=== PATIENT | female | born 1960 | race African-American/Black ===

== ENCOUNTER 2018-07-01 18:56 | Emergency (ER) | payer OTHER, MEDICAID ==
[~2018-07-01] VITALS: Ht 167.6 cm; Wt 74.8 kg
[~2018-07-01 18:56] MED LIST: ALBU0.5N2; BUDE160A3; BUPR150T42; CALCTAB25 PO; DOCU-94 PO; FERR325T47; FOLI1TAB51 PO; GABA300C10; HYDR-2533; HYDR200T36; HYDRX10T; LISI10TA6; MELO1TAB56 PO; METH2.5T3 PO; METH750T3; OMEP20TA PO; PRED10PA; SUMA50TA2; TRAZ100T2; [UNRECOGNIZED DRUG - OTHER]
[2018-07-01 19:32] VITALS: BP 160/105
== END 2018-07-01 22:20 | disposition left against medical advice (07) ==
LOC: EDBD 18:56 → ER 18:59
DX: R10.33 Periumbilical pain (principal); Z53.21 Procedure and treatment not carried out due to patient leaving prior to being seen by health care provider

== ENCOUNTER 2020-05-04 16:26 | Emergency (ER) | payer OTHER, MEDICAID ==
[~2020-05-04] VITALS: Ht 157.5 cm; Wt 63.5 kg
[~2020-05-04 16:26] MED LIST changes: +LISI-648; -LISI10TA6; +METH2.5T PO; -METH2.5T3 PO; -TRAZ100T2; +TRAZ100T3
[2020-05-04 18:04] LABS: Basophils # (auto) 0.1 10 ^3/uL (0-0.2); Basophils % (auto) 1.4 % (0.0-2.0); Eosinophils # (auto) 0 10 ^3/uL (0-0.8); Eosinophils % (auto) 0.8 % (0.0-7.0); Hematocrit 41.8 % (36.0-46.0); Hemoglobin 14.1 g/dL (12.2-16.2); Lymphocytes # (auto) 1.7 10 ^3/uL (0.4-5.4); Lymphocytes % (auto) 36.1 % (10.0-50.0); Mean Corpuscular Hemoglobin 30.1 pg (28.0-32.0); Mean Corpuscular Hgb Conc. 33.8 g/dL (32.0-36.0); Mean Corpuscular Volume 89.1 fL (80.0-100.0); Monocytes # (auto) 0.5 10 ^3/uL (0-1.3); Monocytes % (auto) 9.8 % (0.0-12.0); Neutrophils # (auto) 2.5 10 ^3/uL (1.6-8.6); Neutrophils % (auto) 51.9 % (37.0-80.0); Nucleated Red Blood Cells % 0.1 %; Platelet Count (auto) 261 10^3/uL (140-450); Red Blood Cells 4.69 10^6/uL (4.0-5.20); Red Cell Distribution Width 13.8 % (11.8-14.3); White Blood Cell 4.8 10^3/uL (4.4-10.8)
[2020-05-04 19:09] LABS: Alanine Aminotransferase 28 U/L (13-56); Alkaline Phosphatase 67 U/L (45-117); Anion Gap 9 (5-15); Aspartate Aminotransferase 24 U/L (15-37); BUN/Creatinine Ratio 13.1; Blood Urea Nitrogen 14 mg/dL (7-18); Carbon Dioxide 24 mmol/L (21-32); Chloride 103 mmol/L (98-107); GFR African American 68 mL/min; GFR Non-African American 56 mL/min; Glucose 105 mg/dL (74-106); Potassium 3.6 mmol/L (3.5-5.1); Sodium 136 mmol/L (136-145)
[2020-05-04 19:10] LABS: Albumin 3.8 g/dL (3.4-5.0); Bilirubin, Total 0.5 mg/dL (0.2-1.0); Calcium 9.2 mg/dL (8.5-10.1); Lipase 117 U/L (73-393); Total Protein 8.1 g/dL (6.4-8.2)
[2020-05-04 19:50] VITALS: BP 156/89
[2020-05-04] MEDS ORDERED: traMADol HCL 50 MG TAB PO ONE (21:00)
[2020-05-04 21:06] LABS: Urine Bacteria NONE SEEN /hpf (None Seen); Urine Blood Negative /uL (Negative); Urine Hyaline Cast FEW /lpf (0 - 2); Urine Mucus FEW (None Seen); Urine Specific Gravity 1.032 (1.001-1.035); Urine WBC 3 /hpf (0 - 5)
[2020-05-04] MEDS ORDERED: ONDANSETRON ODT 4 MG TAB PO ONE (21:15)
== END 2020-05-04 21:37 | disposition home or self-care (01) ==
LOC: ER 16:26 → EDBD 16:26 → ER 21:37
DX: R10.84 Generalized abdominal pain (principal); J44.9 Chronic obstructive pulmonary disease, unspecified; K21.9 Gastro-esophageal reflux disease without esophagitis; I10 Essential (primary) hypertension; F17.210 Nicotine dependence, cigarettes, uncomplicated; Z90.49 Acquired absence of other specified parts of digestive tract; Z90.710 Acquired absence of both cervix and uterus; Z88.0 Allergy status to penicillin
CPT/HCPCS: 36415; 71045; 74176; 80053; 81001; 83690; 85025; 93005; 99285; Q0162

== ENCOUNTER 2023-11-16 04:04 | Emergency (ER) | payer OTHER, MEDICAID ==
[~2023-11-16] VITALS: Ht 157.5 cm; Wt 48.3 kg
[~2023-11-16 04:04] MED LIST changes: +GABA-1250; -GABA300C10; -LISI-648; +LISI10TA34; +MELO15TA29 PO; -MELO1TAB56 PO; +METH-1182; -METH750T3; +TRAZ-228; -TRAZ100T3
[2023-11-16 05:00] VITALS: BP 145/68; PULSE 80; RESP 18; TEMP 97.9; O2SAT 98
[2023-11-16] MEDS ORDERED: CLIN1CAP70 PO (05:22)
[2023-11-16] MEDS ORDERED: ACET500T58 PO (05:22)
[2023-11-16] MEDS: cefTRIAXone SOD 1,000 MG VL IM ONE (05:39)
[2023-11-16] MEDS: BENZOCAINE (DENTAL) 20 % SPRAY 60ML MT ONE (05:39)
== END 2023-11-16 05:43 | disposition home or self-care (01) ==
LOC: ER 04:04
DX: K04.7 Periapical abscess without sinus (principal); J44.9 Chronic obstructive pulmonary disease, unspecified; I10 Essential (primary) hypertension; K21.9 Gastro-esophageal reflux disease without esophagitis; M19.90 Unspecified osteoarthritis, unspecified site; Z79.51 Long term (current) use of inhaled steroids; Z79.899 Other long term (current) drug therapy; Z88.0 Allergy status to penicillin; Z88.5 Allergy status to narcotic agent; Z88.6 Allergy status to analgesic agent; Z90.49 Acquired absence of other specified parts of digestive tract; Z90.710 Acquired absence of both cervix and uterus
CPT/HCPCS: 96372; 99283; J0696

== ENCOUNTER 2024-04-08 16:55 | Emergency (ER) | payer OTHER, MEDICAID ==
[~2024-04-08] VITALS: Ht 167.6 cm; Wt 63.7 kg
[~2024-04-08 16:55] MED LIST changes: +ACET500T58 PO; +CLIN1CAP70 PO
--- NOTE | 2024-04-08 17:14 | ED.PDOC ---
GI ASSESSMENT HPI Comments HPI: Poor Historian. HPI: 63 year old female TAMMY presents to the ED with chief complaint of abdominal pain. Patient reports that she has been experiencing recent periumbilical abdominal pain for the past week with associated nausea and vomiting for the past 2 days. Patient relays that she has had chronic abdominal pain and nausea/vomiting for the past 2 years and has seen a GI specialist regarding this concern, being told she had some kind of "blockage," but she continues to experience these symptoms intermittently. Patient states she is currently on Linzess, but could not remember why she is taking it. Patient denies any diarrhea, fever, chills, dysuria, chest pain, or SOB. Initial Vital Signs: Temp : 99.2F BP: 136/72 HR: 94 RR: 16 SpO2: 96% Past Medical History: HTN, HLD, COPD, Hypothyroidism, Arthritis Past Surgical History: , Hysterectomy, Cholecystectomy Social History: Occasional ETOH. Denies smoking or drug use. Medications: Linzess, Lisinopril, Gabapentin Allergies: Codeine, Ibuprofen, Penicillins REVIEW OF SYSTEMS: CONSTITUTIONAL: Denies acute: fever, diaphoresis, chills, generalized weakness. HEAD: Denies acute: headache, photophobia Eyes: Denies acute: Double vision, vision loss, eye pain, eye discharge. EARS: Denies acute: tinnitus, hearing loss, ear discharge, ear pain, THROAT: Denies acute: sore throat, swelling, difficulty swallowing , pain with swallowing, change in voice. NECK: Denies acute: neck pain, neck swelling, stiff neck. HEART: Denies acute : chest pain, palpitations, LUNGS: Denies acute: SOB, wheezing, cough, hemoptysis ABDOMEN: Denies acute: diarrhea, melena , hematemesis, hematochezia SKIN: Denies acute: rash, redness, lesions, itchiness. EXTREMITIES: Denies acute: calf pain, numbness, tingling, weakness, denies pain in extremity. Denies acute: Low back pain. Neuro: Denies acute: focal neurological deficit, motor or sensory focal neurological deficit, tremors, seizure like activity, confusion, dizziness, change in mental status, loss of bowel or bladder function, cauda equina like symptoms. : Denies acute: dysuria, hematuria, flank pain, increase in urinary frequency. PSYCH: Denies acute: hallucination, suicidal ideation, homicidal ideation. FEMALE: Denies acute: abnormal vaginal bleeding, foul odor, unusual discharge. PHYSICAL EXAM: General: no acute distress, awake and alert. Head: normocephalic, atraumatic. Neck: supple, trachea is midline, no swelling. Throat: Normal phonation. Eyes:, no erythema, no purulent discharge, no proptosis, no icterus. Heart: regular rate, regular rhythm, no significant murmur appreciated. Lungs: no apparent respiratory distress, Able to speak in full sentences. No wheezing, no rhonchi, no crackles. No stridors Clear to auscultation bilaterally. Abdomen: Periumbilical tender to palpation, non distended, soft, no guarding, no rebound, + hyperactive bowel sounds. Neuro: Awake, Alert, oriented to name, self, situation, follows commands GCS=15. Speech is normal. Skin: no petechia, no purpura, no cyanosis, non-pale, not jaundice. Lower extremities: --no - Pitting edema no deformity, no focal swelling, no calf TTP. Makes eye contact. moves all four extremities. Face: no apparent facial droop. Ambulating in the ED independently. ED COURSE: Time Seen by MD: 17:03 Primary Care Provider: KRISTINA SINCLAIR Reviewed Notes: Medications, Allergies Allergies: Coded Allergies: Codeine (Verified Allergy, Mild, 08/31/10) Ibuprofen (Verified Allergy, Mild, 08/31/10) Penicillins (Verified Allergy, Mild, 08/31/10) Home Meds Active Scripts Acetaminophen (Acetaminophen) 500 Mg Tab, 500 MG PO Q4HPRN, #30 TAB 0 Refills Prov:JAMIL MCKEE 11/16/23 Clindamycin Hcl (Clindamycin Hcl) 300 Mg Cap, 1 CAP PO QID for 7 Days, #28 CAP 0 Refills Prov:JAMIL MCKEE 11/16/23 Reported Medications Docusate Sodium (Colace) 100 Mg Cap, 100 MG PO, CAP 04/09/15 Calcium Carbonate-Vitamin D (Calcium 600-D) 1 Tab Tab, 1 TAB PO BID, #60 TAB 11 Refills 04/09/15 Folic Acid (FOLIC ACID) 1 Mg Tb, 1 TAB PO DAILY, #90 TAB 1 Refill 04/09/15 Meloxicam (Meloxicam) 15 Mg Tab, 15 MG PO, TAB 04/09/15 Methotrexate (Methotrexate) 2.5 Mg Tab, 2.5 MG PO, TAB 04/09/15 Omeprazole (Gnp Omeprazole) 20 Mg Tab, 20 MG PO, TAB 04/09/15 Albuterol Sulfate (Albuterol Sulfate) 0.5 % Neb 03/28/11 Budesonide-Formoterol Fumarate (Symbicort) 1 Aer Aer 03/28/11 [Triamcinoldine] No Conflict Check 03/28/11 Hydroxychloroquine Sulfate (Hydroxychloroquine Sulfat) 200 Mg Tab, DAILY 03/28/11 Sumatriptan Succinate (Imitrex) 50 Mg Tab 03/28/11 Hydroxyzine Hcl (Vistaril) 10 Mg Tb 03/28/11 Ferrous Sulfate (Fe Tabs) 325 Mg Tab, DAILY 03/28/11 Lisinopril (Lisinopril) 10 Mg Tab 03/28/11 Trazodone Hcl (Trazodone Hcl) 100 Mg Tab, DAILY 03/28/11 Bupropion Hcl (Budeprion Sr) 150 Mg Tab, DAILY 03/28/11 Methocarbamol (Methocarbamol) 750 Mg Tab 03/28/11 Gabapentin (Gabapentin) 300 Mg Cap, TID 03/28/11 Hydrocodone-Acetaminophen (Hydrocodone Bitartrate/Ap) 1 Tab Tab 03/28/11 Prednisone (Sterapred Ds) 10 Mg Jose Guadalupe 03/28/11 Information Source: Patient, Emergency Med Personnel Mode of Arrival: EMS Was a procedure done? Was a procedure done?: No GI differential Dx Differential Diagnosis: Other (DDX include Diverticulitis, colitis, gastroenteritis, acute abdomen, SBO, enteritis, constipation, volvulus, appendicitis, Gallbladder disease, choledocolithiasis, ascending cholangitis, pancreatitis, intraAbdominal mass/neoplasm, hepatitis, UTI, pylonephritis, kidney stone, aneurysm, dissection, Inflammatory bowel disease, gastroparesis, ischemic bowel, ovarian torsion, ovarian cyst/mass, tubo-ovarian abscess, , PID, STD.) X-Ray, Labs, Meds, VS Vital Signs Date Time Temp Pulse Resp B/P (MAP) Pulse Ox O2 Delivery O2 Flow Rate FiO2 04/08/24 20:47 98.1 68 18 118/66 (83) 96 98.1 04/08/24 20:22 Room Air* 0 21 04/08/24 18:01 Room Air* 0 21 04/08/24 17:03 73 04/08/24 17:03 99.2 94 16 136/72 (93) 96 Lab Test 04/08/24 21:00 04/08/24 20:35 04/08/24 18:09 Range/Units Lactic Acid Level 1.7 2.4 *H 0.4-2.0 mmol/L Urine Color Light-yellow Yellow Urine Clarity Clear Clear Urine pH 5.5 5.0-9.0 Urine Specific [place] 1.012 1.001-1.035 Urine Protein Negative Negative Urine Ketones Negative Negative Urine Blood Negative Negative /uL Urine Nitrite Negative Negative Urine Bilirubin Negative Negative Urine Urobilinogen Normal Negative mg/dL Urine Leukocyte Esterase Negative Negative /uL Urine RBC 1 0 - 4 /hpf Urine Microscopic WBC 1 0-5 /HPF Urine Squamous Epithelial Cells Few <5 /hpf Urine Bacteria None seen None Seen /hpf Urine Glucose Normal Normal mg/dL White Blood Count 6.4 4.4-10.8 10^3/uL Red Blood Count 4.14 4.0-5.20 10^6/uL Hemoglobin 12.3 12.2-16.2 g/dL Hematocrit 37.9 36.0-46.0 % Mean Corpuscular Volume 91.4 80.0-100.0 fL Mean Corpuscular Hemoglobin 29.8 28.0-32.0 pg Mean Corpuscular Hemoglobin Concent 32.6 32.0-36.0 g/dL Red Cell Distribution Width 13.2 11.8-14.3 % Platelet Count 228 140-450 10^3/uL Mean Platelet Volume 7.2 6.9-10.8 fL Neutrophils (%) (Auto) 65.5 37.0-80.0 % Lymphocytes (%) (Auto) 22.2 10.0-50.0 % Monocytes (%) (Auto) 8.8 0.0-12.0 % Eosinophils (%) (Auto) 2.8 0.0-7.0 % Basophils (%) (Auto) 0.7 0.0-2.0 % Neutrophils # (Auto) 4.2 1.6-8.6 10 ^3/uL Lymphocytes # (Auto) 1.4 0.4-5.4 10 ^3/uL Monocytes # (Auto) 0.6 0-1.3 10 ^3/uL Eosinophils # (Auto) 0.2 0-0.8 10 ^3/uL Basophils # (Auto) 0 0-0.2 10 ^3/uL Nucleated Red Blood Cells 0.1 % Sodium Level 137 136-145 mmol/L Potassium Level 3.2 L 3.5-5.1 mmol/L Chloride Level 102 98-107 mmol/L Carbon Dioxide Level 26 20-31 mmol/L Anion Gap 9 5-15 Blood Urea Nitrogen 13 9-23 mg/dL Creatinine 0.95 0.550-1.02 mg/dL Glomerular Filtration Rate Calc 68 >90 mL/min BUN/Creatinine Ratio 13.7 10.0-20.0 Serum Glucose 88 74-106 mg/dL Calcium Level 8.8 8.7-10.4 mg/dL Total Bilirubin 0.5 0.2-1.0 mg/dL Aspartate Amino Transferase (AST) 26 13-40 U/L Alanine Aminotransferase (ALT) 28 7-40 U/L Alkaline Phosphatase 76 46-116 U/L Troponin I High Sensitivity < 3 L </=34 ng/L Total Protein 6.1 5.7-8.2 g/dL Albumin 3.7 3.2-4.8 g/dL Lipase 34 12-53 U/L Current Medications Medications (Trade) Dose Ordered Sig/[place] Route Start Time Stop Time Status Last Admin Sodium Chloride 1,000 ml @ 1,000 mls/hr Q1H ONCE IV 04/08/24 17:15 04/08/24 18:14 DC 04/08/24 17:15 Ondansetron HCl (Zofran) 8 mg ONCE ONCE IV 04/08/24 17:15 04/08/24 17:16 DC 04/08/24 17:15 Sodium Chloride 1,000 ml @ 1,000 mls/hr Q1H ONCE IV 04/08/24 19:15 04/08/24 20:14 DC 04/08/24 20:[address] [address] Ph: [phone] DIAGNOSTIC IMAGING Diagnostic Imaging Report : [id number] Signed PATIENT: SIERRA NASH ACCT: [id number] UNIT: [id number] : 1960 LOC: ER ROOM / BED: / AGE / SEX: 63 / F ADM STATUS: REG ER SERVICE 1703 ORDERING PHYSICIAN: DANIELLA LUCIO DO PROCEDURE(s): ABPL - CT AB PEL WO CON-NO ORAL OR IV REASON: abd pain, n/v ORDER NUMBER(s): [id number], ACCESSION NUMBER(s): [id number] Exam: CT CT AB PEL WO CON-NO ORAL OR IV History: abd pain, n/v Comparison Study: None available at time of dictation. TECHNIQUE: Multidetector CT of the abdomen was performed from lung bases to pubic symphysis. Imaging was performed without IV contrast. Axial, coronal and sagittal multiplanar reformats were obtained from the axial data set by the technologist. Radiation Dose Information: CT Dose: CTDI volume is 5.08 mGy. Dose-length product is 221.66 mGy*cm FINDINGS: Evaluation of solid organs is limited due to lack of intravenous contrast use. Findings: Lung Bases: No acute or significant lung base finding. Normal heart size. No pleural or pericardial effusion. Liver: The liver is normal in size. No focal lesions. Gallbladder and Biliary Tree: Gallbladder has been surgically removed. Spleen: Unremarkable Pancreas: The pancreas is grossly normal in appearance. Adrenal Glands: Unremarkable Kidneys: Kidneys are grossly normal without calculi or hydronephrosis. Bladder: Grossly unremarkable for degree of distention. Bowel: The stomach is distended with fluid. Small bowel is minimally distended and fluid-filled throughout. Findings may represent gastroenteritis. There are no CT findings to suggest obstruction.. The appendix is not visualized; however, no secondary findings of acute appendicitis identified. Ascites: Absent Lymphadenopathy: No mesenteric, retroperitoneal or periportal lymphadenopathy. Abdominal Wall and Mesentery: Unremarkable. Vasculature: The visualized abdominal aorta is normal in size and caliber. Evaluation of abdominal and pelvic vessels is limited due to lack of intravenous contrast. Pelvic Organs: Unremarkable Musculoskeletal: No aggressive focal bony lesions, acute fractures or dislocation. Soft tissues: Unremarkable IMPRESSION: 1. No CT findings to suggest bowel obstruction. 2. CT findings are most consistent with gastroenteritis. 3. Gallbladder has been surgically removed. . Radiation optimization: All CT scans at this facility use at least one of these dose optimization techniques: automated exposure control mA and/or kV adjustment per patient size (includes targeted exams where dose is matched to clinical indication) or iterative reconstruction. ATED BY: NENO LEMUS Jr., DO DICTATED DATE/TIME: 04/08/241750 SIGNED BY: NENO LEMUS Jr., SIGNED DATE/TIME: 04/08/241750 CC: Time of 1ST Reevaluation: 18:03 Reevaluation 1ST: Unchanged Time of 2ND Reevaluation: 22:03 Reevaluation 2ND: Improved Patient Education/Counseling: Diagnosis, Treatment Family Education/Counseling: No Family Present Comments Patient presented with the above HPI.-abdominal pain-----workup was initiated. patient was found with the above mentioned diagnosis. the following medications were ordered: please refer to order lists of meds and tests obtained by myself Dr. Lucio. Patient ED course and VS have been stabilized. Patient has been reassessed in the ED and remained in a stable condition. Pertinent incidental findings were discussed with the patient and/or family. Patient/family voices understanding and is agreeable with plan. Patient has been observed in the ED adequate length of time to insure improvement/stability. Escalation of care considered: Consideration of escalation to observation or admission Patient was DISCHARGED home in a stable condition. All the reports of any imaging studies that were ordered by myself were reviewed by myself. Departure 1 Departure Time of Disposition: 22:03 Impression: Primary Impression: Abdominal pain Additional Impressions: Nausea and vomiting Gastroenteritis Hypokalemia Disposition: 01 HOME / SELF CARE / HOMELESS Condition: Stable Additional Instructions: Additional discharge instructions: You MUST follow-up with your primary care/family doctor in 1 to 2 days. If you are unable to see your primary care/family doctor, please return to our emergency room for re-assessment and re-evaluation in 1 to 2 days. Return to the emergency room here in our facility or to the nearest ER [facility] if your symptoms change or worsen. CONSULTATIONS: you MUST Follow-up for consultation as soon as possible with: -general surgery and GI doctor in 1-2 days. Please call for appointment. You MUST call the consultants office yourself to make an appointment. You may need to arrange that through your insurance and/or your primary/family doctor. If you are unable to see the [facility] consultant in 1 to 2 days, you must return to our emergency room (or any other ER of your choice) for re-assessment and re- evaluation. Adequate fluid hydration. Below is a copy of your radiological report for follow up: [place] [address] Ph: [phone] DIAGNOSTIC IMAGING Diagnostic Imaging Report : [id number] Signed PATIENT: SIERRA NASH ACCT: [id number] UNIT: [id number] : 1960 LOC: ER ROOM / BED: / AGE / SEX: 63 / F ADM STATUS: REG ER SERVICE 1703 ORDERING PHYSICIAN: DANIELLA LUCIO DO PROCEDURE(s): ABPL - CT AB PEL WO CON-NO ORAL OR IV REASON: abd pain, n/v ORDER NUMBER(s): [id number], ACCESSION NUMBER(s): [id number] Exam: CT CT AB PEL WO CON-NO ORAL OR IV History: abd pain, n/v Comparison Study: None available at time of dictation. TECHNIQUE: Multidetector CT of the abdomen was performed from lung bases to pubic symphysis. Imaging was performed without IV contrast. Axial, coronal and sagittal multiplanar reformats were obtained from the axial data set by the technologist. Radiation Dose Information: CT Dose: CTDI volume is 5.08 mGy. Dose-length product is 221.66 mGy*cm FINDINGS: Evaluation of solid organs is limited due to lack of intravenous contrast use. Findings: Lung Bases: No acute or significant lung base finding. Normal heart size. No pleural or pericardial effusion. Liver: The liver is normal in size. No focal lesions. Gallbladder and Biliary Tree: Gallbladder has been surgically removed. Spleen: Unremarkable Pancreas: The pancreas is grossly normal in appearance. Adrenal Glands: Unremarkable Kidneys: Kidneys are grossly normal without calculi or hydronephrosis. Bladder: Grossly unremarkable for degree of distention. Bowel: The stomach is distended with fluid. Small bowel is minimally distended and fluid-filled throughout. Findings may represent gastroenteritis. There are no CT findings to suggest obstruction.. The appendix is not visualized; however, no secondary findings of acute appendicitis identified. Ascites: Absent Lymphadenopathy: No mesenteric, retroperitoneal or periportal lymphadenopathy. Abdominal Wall and Mesentery: Unremarkable. Vasculature: The visualized abdominal aorta is normal in size and caliber. Evaluation of abdominal and pelvic vessels is limited due to lack of intravenous contrast. Pelvic Organs: Unremarkable Musculoskeletal: No aggressive focal bony lesions, acute fractures or dislocation. Soft tissues: Unremarkable IMPRESSION: 1. No CT findings to suggest bowel obstruction. 2. CT findings are most consistent with gastroenteritis. 3. Gallbladder has been surgically removed. . Radiation optimization: All CT scans at this facility use at least one of these dose optimization techniques: automated exposure control mA and/or kV adjustment per patient size (includes targeted exams where dose is matched to clinical indication) or iterative reconstruction. ATED BY: NENO LEMUS Jr., DO DICTATED DATE/TIME: 04/08/241750 SIGNED BY: NENO LEMUS Jr., DO SIGNED DATE/TIME: 04/08/241750 CC: Discharged With: Self Critical Care Note Critical Care Time?: No I personally scribed for DANIELLA LUCIO DO ([email or web address]) on 04/08/24 at 17:14. Electronically submitted by Shadi Hogue ([email or web address]). I personally scribed for DANIELLA LUCIO DO ([email or web address]) on 04/08/24 at 18:06. Electronically submitted by Shadi Hogue ([email or web address]). I personally scribed for DANIELLA LUCIO DO ([email or web address]) on 04/08/24 at 18:22. Electronically submitted by Shadi Hogue ([email or web address]). DANIELLA LUCIO DO Apr 08, 2024 17:14
[2024-04-08] MEDS: ONDANSETRON HCL 4 MG/2 ML VIAL IV ONE (17:15)
[2024-04-08] MEDS: SODIUM CHLORIDE 0.9% 1,000 ML IV ONE ×2 (17:15→20:07)
--- NOTE | 2024-04-08 17:54 | DVH ---
Exam: CT CT AB PEL WO CON-NO ORAL OR IV History: abd pain, n/v Comparison Study: None available at time of dictation. TECHNIQUE: Multidetector CT of the abdomen was performed from lung bases to pubic symphysis. Imaging was performed without IV contrast. Axial, coronal and sagittal multiplanar reformats were obtained fr om the axial data set by the technologist. Radiation Dose Information: CT Dose: CTDI volume is 5.08 mGy. Dose-length product is 221.66 mGy*cm FINDINGS: Evaluation of solid organs is limited due to lack of intravenous contrast use. Findings: Lung Bases: No acute or significant lung base finding. Normal heart size. No pleural or pericardial effusion. Liver: The liver is normal in size. No focal lesions. Gallbladder and Biliary Tree: Gallbladder has been surgically removed. Spleen: Unremarkable Pancreas: The pancreas is grossly normal in appearance. Adrenal Glands: Unremarkable Kidneys: Kidneys are grossly normal without calculi or hydronephrosis. Bladder: Grossly unremarkable for degree of distention. Bowel: The stomach is distended with fluid. Small bowel is minimally distended and fluid-filled throu ghout. Findings may represent gastroenteritis. There are no CT findings to suggest obstruction.. The appendix is not visualized; however, no secondary findings of acute appendicitis identified. Ascites: Absent Lymphadenopathy: No mesenteric, retroperitoneal or periportal lymphadenopathy. Abdominal Wall and Mesentery: Unremarkable. Vasculature: The visualized abdominal aorta is normal in size and caliber. Evaluation of abdominal a nd pelvic vessels is limited due to lack of intravenous contrast. Pelvic Organs: Unremarkable Musculoskeletal: No aggressive focal bony lesions, acute fractures or dislocation. Soft tissues: Unremarkable IMPRESSION: 1. No CT findings to suggest bowel obstruction. 2. CT findings are most consistent with gastroenteritis. 3. Gallbladder has been surgically removed. . Radiation optimization: All CT scans at this facility use at least one of these dose optimization bulmaro hniques: automated exposure control mA and/or kV adjustment per patient size (includes targeted exam s where dose is matched to clinical indication) or iterative reconstruction.
[2024-04-08 18:31] LABS: Basophils # (auto) 0 10 ^3/uL (0-0.2); Basophils % (auto) 0.7 % (0.0-2.0); Eosinophils # (auto) 0.2 10 ^3/uL (0-0.8); Eosinophils % (auto) 2.8 % (0.0-7.0); Hematocrit 37.9 % (36.0-46.0); Hemoglobin 12.3 g/dL (12.2-16.2); Lymphocytes # (auto) 1.4 10 ^3/uL (0.4-5.4); Lymphocytes % (auto) 22.2 % (10.0-50.0); Mean Corpuscular Hemoglobin 29.8 pg (28.0-32.0); Mean Corpuscular Hgb Conc. 32.6 g/dL (32.0-36.0); Mean Corpuscular Volume 91.4 fL (80.0-100.0); Monocytes # (auto) 0.6 10 ^3/uL (0-1.3); Monocytes % (auto) 8.8 % (0.0-12.0); Neutrophils # (auto) 4.2 10 ^3/uL (1.6-8.6); Neutrophils % (auto) 65.5 % (37.0-80.0); Nucleated Red Blood Cells % 0.1 %; Platelet Count (auto) 228 10^3/uL (140-450); Red Blood Cells 4.14 10^6/uL (4.0-5.20); Red Cell Distribution Width 13.2 % (11.8-14.3); White Blood Cell 6.4 10^3/uL (4.4-10.8)
[2024-04-08 18:50] LABS: Alanine Aminotransferase 28 U/L (7-40); Albumin 3.7 g/dL (3.2-4.8); Alkaline Phosphatase 76 U/L (46-116); Anion Gap 9 (5-15); Aspartate Aminotransferase 26 U/L (13-40); BUN/Creatinine Ratio 13.7 (10.0-20.0); Blood Urea Nitrogen 13 mg/dL (9-23); Calcium 8.8 mg/dL (8.7-10.4); Carbon Dioxide 26 mmol/L (20-31); Chloride 102 mmol/L (98-107); Glucose 88 mg/dL (74-106); Lipase 34 U/L (12-53); Potassium 3.2 mmol/L (3.5-5.1); Sodium 137 mmol/L (136-145)
[2024-04-08 18:51] LABS: Bilirubin, Total 0.5 mg/dL (0.2-1.0); Total Protein 6.1 g/dL (5.7-8.2)
[2024-04-08 19:11] LABS: Lactic Acid w/Reflex 2.4 mmol/L (0.4-2.0)
[2024-04-08 20:47] VITALS: BP 118/66; PULSE 68; RESP 18; TEMP 98.1; O2SAT 96
[2024-04-08 21:50] LABS: Urine Bacteria None Seen /hpf (None Seen)
[2024-04-08 21:55] LABS: Urine Blood Negative /uL (Negative); Urine Clarity Clear (Clear); Urine Color Light-Yellow (Yellow); Urine Protein, UAD Negative (Negative); Urine Specific Gravity 1.012 (1.001-1.035); Urine Squamous Epithelial Cell FEW /hpf (<5); Urine Urobilinogen Normal (Negative); Urine WBC 1 /HPF (0-5); Urine pH 5.5 (5.0-9.0)
[2024-04-08] MEDS: POTASSIUM CHL 20 Meq TABLET PO ONE (22:38)
--- NOTE | 2024-04-10 11:27 | ECG ---
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
== END 2024-04-08 22:46 | disposition home or self-care (01) ==
LOC: EDSEX 16:55 → ER 16:55 → EDUNIT# 16:55 → EDBD 16:55 → ER 22:46
DX: K52.9 Noninfective gastroenteritis and colitis, unspecified (principal); E87.6 Hypokalemia; I10 Essential (primary) hypertension; E78.5 Hyperlipidemia, unspecified; E03.9 Hypothyroidism, unspecified; G89.29 Other chronic pain; J44.9 Chronic obstructive pulmonary disease, unspecified; Z79.51 Long term (current) use of inhaled steroids; Z90.49 Acquired absence of other specified parts of digestive tract; Z90.710 Acquired absence of both cervix and uterus; Z79.899 Other long term (current) drug therapy; Z88.0 Allergy status to penicillin; Z88.5 Allergy status to narcotic agent; Z88.6 Allergy status to analgesic agent; Z88.8 Allergy status to other drugs, medicaments and biological substances
CPT/HCPCS: 36415; 74176; 80053; 81001; 83605; 83690; 84484; 85025; 93005; 96361; 96374; 99285; J2405; J7030

== ENCOUNTER 2024-11-02 23:25 | Inpatient (IN) | payer OTHER, MEDICAID ==
[~2024-11-02] VITALS: Ht 157.5 cm; Wt 49.7 kg
--- NOTE | 2024-11-03 00:10 | ED.PDOC ---
GI ASSESSMENT HPI Comments 64-year-old female who came to ER for abdominal pain. Abdominal pain for the past few months, worse in the past 2 days, epigastric abdominal pain, associated of nausea, vomiting and loose nonbloody diarrhea. Patient given Tylenol and Zofran by paramedics coming to the emergency room REVIEW OF SYSTEMS: General: No fever, no chills, or fatigue HEENT: No sore throat, no earache, no congestion, no neck pain. Cardiac: No chest pain. No palpitations. Lungs: No shortness of breath, no cough. GI: Positive nausea, positive vomiting, no diarrhea, no constipation, positive abdominal pain : No dysuria, frequency, or urgency. No hematuria. Musculoskeletal: No joint pain , no joint swelling, no extremity edema. Skin: No rash, no itching. Neuro: No headache, no dizziness, no weakness PHYSICAL EXAM: General: Awake, alert and oriented. No acute distress. Skin: Skin in warm, dry and intact. Appropriate color for ethnicity. HEENT: The head is normocephalic and atraumatic. Conjunctivae are clear without exudates or hemorrhage. Sclera is non-icteric. EOM are intact. No signs of nystagmus. Eyelids are normal in appearance without swelling or lesions. Oral mucosa is pink and moist Neck: The neck is supple with normal range of motion. No JVD. Cardiac: Heart rate and rhythm are normal. No murmurs, gallops, or rubs are auscultated. Respiratory: No signs of respiratory distress. Lung sounds are clear in all lobes bilaterally without rales, rhonchi, or wheezes. Abdominal: Abdomen is soft, generalized abdominal tenderness, guarding or rigidity. Bowel sounds are present and normoactive in all four quadrants. Extremities: Upper and lower extremities are atraumatic in appearance without deformity or edema. Neurological: The patient is awake, alert and oriented to person, place, and time with normal speech. Speech is clear. There is no facial asymmetry. 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 Allergies: Coded Allergies: Codeine (Verified Allergy, Mild, 08/31/10) Ibuprofen (Verified Allergy, Mild, 08/31/10) Penicillins (Verified Allergy, Mild, 08/31/10) Home Meds Active Scripts Acetaminophen (Acetaminophen) 500 Mg Tab, 500 MG PO Q4HPRN, #30 TAB 0 Refills Prov:JAMIL MCKEE 11/16/23 Clindamycin Hcl (Clindamycin Hcl) 300 Mg Cap, 1 CAP PO QID for 7 Days, #28 CAP 0 Refills Prov:JAMIL MCKEE 11/16/23 Reported Medications Docusate Sodium (Colace) 100 Mg Cap, 100 MG PO, CAP 04/09/15 Calcium Carbonate-Vitamin D (Calcium 600-D) 1 Tab Tab, 1 TAB PO BID, #60 TAB 11 Refills 04/09/15 Folic Acid (FOLIC ACID) 1 Mg Tb, 1 TAB PO DAILY, #90 TAB 1 Refill 04/09/15 Meloxicam (Meloxicam) 15 Mg Tab, 15 MG PO, TAB 04/09/15 Methotrexate (Methotrexate) 2.5 Mg Tab, 2.5 MG PO, TAB 04/09/15 Omeprazole (Gnp Omeprazole) 20 Mg Tab, 20 MG PO, TAB 04/09/15 Albuterol Sulfate (Albuterol Sulfate) 0.5 % Neb 03/28/11 Budesonide-Formoterol Fumarate (Symbicort) 1 Aer Aer 03/28/11 [Triamcinoldine] No Conflict Check 03/28/11 Hydroxychloroquine Sulfate (Hydroxychloroquine Sulfat) 200 Mg Tab, DAILY 03/28/11 Sumatriptan Succinate (Imitrex) 50 Mg Tab 03/28/11 Hydroxyzine Hcl (Vistaril) 10 Mg Tb 03/28/11 Ferrous Sulfate (Fe Tabs) 325 Mg Tab, DAILY 03/28/11 Lisinopril (Lisinopril) 10 Mg Tab 03/28/11 Trazodone Hcl (Trazodone Hcl) 100 Mg Tab, DAILY 03/28/11 Bupropion Hcl (Budeprion Sr) 150 Mg Tab, DAILY 03/28/11 Methocarbamol (Methocarbamol) 750 Mg Tab 03/28/11 Gabapentin (Gabapentin) 300 Mg Cap, TID 03/28/11 Hydrocodone-Acetaminophen (Hydrocodone Bitartrate/Ap) 1 Tab Tab 03/28/11 Prednisone (Sterapred Ds) 10 Mg Jose Guadalupe 03/28/11 Information Source: Patient, Emergency Med Personnel Mode of Arrival: EMS Timing: Hours Duration: Intermittent Past Medical History PAST MEDICAL HISTORY: Arthritis, COPD, GERD, High Lipids, HTN Surgical History: Cholecystectomy, , Hysterectomy Family History Family History: Unknown Social History Smoker: Non-Smoker Alcohol: Occasionally Drugs: Denies Drug Use Lives In: Home Was a procedure done? Was a procedure done?: No GI differential Dx Differential Diagnosis: Gastritis/PUD, Gastroenteritis X-Ray, Labs, Meds, VS Vital Signs Date Time Temp Pulse Resp B/P (MAP) Pulse Ox O2 Delivery O2 Flow Rate FiO2 11/03/24 02:28 99.1 76 16 143/67 (92) 93 99.1 11/03/24 02:28 Room Air* 0 21 11/02/24 23:28 64 11/02/24 23:25 98.4 78 20 158/79 97 98.4 Lab Test 11/03/24 01:47 11/03/24 00:22 Range/Units Lactic Acid Level 1.9 3.5 *H 0.4-2.0 mmol/L White Blood Count 6.8 4.4-10.8 10^3/uL Red Blood Count 5.22 H 4.0-5.20 10^6/uL Hemoglobin 15.6 12.2-16.2 g/dL Hematocrit 47.0 H 36.0-46.0 % Mean Corpuscular Volume 90.2 80.0-100.0 fL Mean Corpuscular Hemoglobin 29.9 28.0-32.0 pg Mean Corpuscular Hemoglobin Concent 33.2 32.0-36.0 g/dL Red Cell Distribution Width 14.3 11.8-14.3 % Platelet Count 397 140-450 10^3/uL Mean Platelet Volume 7.2 6.9-10.8 fL Neutrophils (%) (Auto) 59.6 37.0-80.0 % Lymphocytes (%) (Auto) 28.6 10.0-50.0 % Monocytes (%) (Auto) 8.5 0.0-12.0 % Eosinophils (%) (Auto) 2.5 0.0-7.0 % Basophils (%) (Auto) 0.8 0.0-2.0 % Neutrophils # (Auto) 4.1 1.6-8.6 10 ^3/uL Lymphocytes # (Auto) 2.0 0.4-5.4 10 ^3/uL Monocytes # (Auto) 0.6 0-1.3 10 ^3/uL Eosinophils # (Auto) 0.2 0-0.8 10 ^3/uL Basophils # (Auto) 0.1 0-0.2 10 ^3/uL Nucleated Red Blood Cells 0.1 % Sodium Level 140 136-145 mmol/L Potassium Level 4.1 3.5-5.1 mmol/L Chloride Level 96 L 98-107 mmol/L Carbon Dioxide Level 34 H 20-31 mmol/L Anion Gap 10 5-15 Blood Urea Nitrogen 17 9-23 mg/dL Creatinine 1.10 H 0.550-1.02 mg/dL Glomerular Filtration Rate Calc 57 >90 mL/min BUN/Creatinine Ratio 15.5 10.0-20.0 Serum Glucose 107 H 74-106 mg/dL Calcium Level 10.5 H 8.7-10.4 mg/dL Total Bilirubin 0.6 0.2-1.0 mg/dL Aspartate Amino Transferase (AST) 22 13-40 U/L Alanine Aminotransferase (ALT) 26 7-40 U/L Alkaline Phosphatase 104 46-116 U/L Total Protein 8.8 H 5.7-8.2 g/dL Albumin 4.6 3.2-4.8 g/dL Lipase 49 12-53 U/L Current Medications Medications (Trade) Dose Ordered Sig/Carlton Route Start Time Stop Time Status Last Admin Sodium Chloride 1,000 ml @ 1,000 mls/hr Q1H ONCE IV 11/03/24 00:15 11/03/24 01:14 DC 11/03/24 00:38 Sodium Chloride 1,000 ml @ 1,000 mls/hr Q1H ONCE IV 11/03/24 01:30 11/03/24 02:29 DC 11/03/24 02:27 Sodium Chloride 1,000 ml @ 130 mls/hr Q7H42M ONCE IV 11/03/24 01:30 11/03/24 09:11 11/03/24 02:28 Time of 1ST Reevaluation: 00:07 Reevaluation 1ST: Unchanged Patient Education/Counseling: Need For Follow Up Family Education/Counseling: No Family Present SEPSIS Sepsis Screen Date sepsis recognized/suspect: Nov 02, 2024 Time Sepsis recognized/suspect: 2324 Recent Procedure: No On Antibiotic Therapy: No Respiratory Rate >20: No Heart Rate >90: No Temp<36 C (96.8 F) or >38.3 C: No SBP <90 or MAP <65 mmHG: No New Acute Mental Status Change: No Is the patient on CPAP, BIPAP,: No Physician Orders Urinalysis (11/03/24 00:10) Sodium Chloride 0.9% (11/03/24 01:30) Blood Culture (11/03/24 01:32) Ct Ab Pel With Iv Con Only (11/03/24 01:32) Ondansetron Hcl (Zofran) (11/03/24 03:00) Morphine Sulfate Injection (11/03/24 03:00) Npo Except Ice Chips (11/03/24 02:51) Npo (Nothing By Mouth) Diet (11/03/24 Breakfast) Vital Signs Date Time Temp Pulse Resp B/P (MAP) Pulse Ox O2 Delivery O2 Flow Rate FiO2 11/03/24 02:28 99.1 76 16 143/67 (92) 93 99.1 11/03/24 02:28 Room Air* 0 21 11/02/24 23:28 64 11/02/24 23:25 98.4 78 20 158/79 97 98.4 Laboratory Tests Test 11/03/24 00:22 11/03/24 01:47 Lactic Acid Level 3.5 mmol/L (0.4-2.0) *H 1.9 mmol/L (0.4-2.0) White Blood Count 6.8 10^3/uL (4.4-10.8) Medications Medications Dose Ordered Sig/Carlton Route Start Time Stop Time Status Last Admin Dose Admin Sodium Chloride 1,000 ml @ 130 mls/hr Q7H42M ONCE IV 11/03/24 01:30 11/03/24 09:11 11/03/24 02:28 Sodium Chloride 1,000 ml @ 1,000 mls/hr Q1H ONCE IV 11/03/24 00:15 11/03/24 01:14 DC 11/03/24 00:38 Sodium Chloride 1,000 ml @ 1,000 mls/hr Q1H ONCE IV 11/03/24 01:30 11/03/24 02:29 DC 11/03/24 02:27 Departure 1 Departure Time of Disposition: 02:52 Impression: Primary Impression: Abdominal pain Additional Impressions: Lactic acidemia Lung nodule Disposition: ADMITTED INPATIENT Condition: Guarded Comments 64-year-old female who presents with chronic intermittent abdominal pain Patient found have lactic acidemia IV fluids administered in the ED CT scan shows possible ileus versus enteritis . Patient has not noted to be vomiting during the ED observation. Incidental lung nodule noted Extensive evaluation was performed in attempt to identify or rule out: (See differential diagnosis section) The following tests were ordered, and results were reviewed by me and discussed with patient: (See diagnostic results section) Additional information was gathered from interviewing the following independent historians: EMS personnel Decision regarding hospitalization or escalation of hospital level of care: Risk and benefits of admission for further treatment of patient's condition was considered. Due to patient's current clinical condition, high risk of decline and poor outcome if discharged and need for further inpatient management and monitoring, patient will be admitted to the hospital. Discussed with patient. Drug therapy requiring intensive monitoring for toxicity: IV contrast Parenteral controlled substances: IV morphine Critical Care Note Critical Care Time?: No Stability Stability form required: No Heart Score Heart Score: Heart Score Response (Comments) Value History N/A 0 EKG N/A 0 Age N/A 0 Risk Factors N/A 0 Troponin N/A 0 Total 0 I personally scribed for MARQUES HARGROVE MD ([email or web address]) on 11/03/24 at 00:10. Electronically submitted by Luke Licona ([email or web address]). MARQUES HARGROVE MD Nov 03, 2024 00:10
--- NOTE | 2024-11-03 00:27 | ECG ---
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
[2024-11-03 00:38] LABS: Hematocrit 47.0 % (36.0-46.0); Hemoglobin 15.6 g/dL (12.2-16.2); Mean Corpuscular Hemoglobin 29.9 pg (28.0-32.0); Mean Corpuscular Volume 90.2 fL (80.0-100.0); Nucleated Red Blood Cells % 0.1 %
[2024-11-03] MEDS: SODIUM CHLORIDE 0.9% 1,000 ML IV ONE ×3 (00:38→02:28)
[2024-11-03 01:06] LABS: Alanine Aminotransferase 26 U/L (7-40); Albumin 4.6 g/dL (3.2-4.8); Alkaline Phosphatase 104 U/L (46-116); Anion Gap 10 (5-15); BUN/Creatinine Ratio 15.5 (10.0-20.0); Blood Urea Nitrogen 17 mg/dL (9-23); Lipase 49 U/L (12-53); Potassium 4.1 mmol/L (3.5-5.1); Sodium 140 mmol/L (136-145)
[2024-11-03 01:07] LABS: Bilirubin, Total 0.6 mg/dL (0.2-1.0)
[2024-11-03 01:11] LABS: Lactic Acid w/Reflex 3.5 mmol/L (0.4-2.0)
[2024-11-03 01:12] LABS: Calcium 10.5 mg/dL (8.7-10.4); Carbon Dioxide 34 mmol/L (20-31); Chloride 96 mmol/L (98-107); Glucose 107 mg/dL (74-106); Total Protein 8.8 g/dL (5.7-8.2)
[2024-11-03] MEDS: IOHEXOL 300 MG/ML 100ML BOTTLE IJ ONE (02:24)
--- NOTE | 2024-11-03 02:43 | DVH ---
Exam: CT CT AB PEL WITH IV CON ONLY History: Abdominal pain, nausea, vomiting, elevated lactic acid COMPARISON: CT CT AB PEL WO CON-NO ORAL OR IV on DOS: 04/08/24, CT ABD PELVIS WO CONTRAST on DOS: 05/04 Technique: Multidetector spiral CT of the abdomen and pelvis was performed from lung bases to pubic s ymphysis. Intravenous contrast was administered during this examination. Portal venous imaging was o btained. Axial, coronal and sagittal multiplanar reformats were performed by the technologist on a [email or web address] workstation. Radiation Dose : 1. Abdomen/Pelvis: CTDIvol 5.07 mGy, DLP 274.92 mGy*cm. CONTRAST: Type of contrast: Omniscan 300 Contrast injected: 100 ml Findings: Lung Bases: No acute or significant lung base finding. Partially calcified 9 mm nodule within the pos terolateral right lung base. Normal heart size. No pleural or pericardial effusion. Liver: The liver is normal in size. No focal lesions. Normal hepatic vascular enhancement. Gallbladder and Biliary Tree: Status post cholecystectomy with moderate reservoir effect. The common bile duct measures 11 mm at the level of the pancreatic head. The pancreatic duct measures approxima tely 4 mm. Spleen: Unremarkable Pancreas: The pancreas is normal in appearance without focal lesions or abnormal enhancement. Adrenal Glands: Unremarkable Kidneys: No nephrolithiasis or hydronephrosis. Bilateral renal cortical cysts measure up to 12 mm. Bladder: Unremarkable Bowel: The stomach is distended and fluid-filled. Multiple moderately dilated fluid and gas-filled se gments of small and large bowel exhibiting air-fluid levels without an identifiable transition zone o f caliber or obstructive etiology. The appendix is not visualized; however, no secondary findings of acute appendicitis identified. Ascites: Absent Lymphadenopathy: No mesenteric, retroperitoneal or periportal lymphadenopathy. Abdominal Wall and Mesentery: Unremarkable. Vasculature: The visualized abdominal aorta is normal in size and caliber. Atherosclerotic vascular c alcifications. Abdominal and pelvic vessels demonstrate normal enhancement. Pelvic Organs: Unremarkable status post hysterectomy. Musculoskeletal: No aggressive focal bony lesions, acute fractures or dislocation. IMPRESSION: 1. Multiple moderately dilated fluid and gas-filled segments of small and large bowel exhibiting air- fluid levels without an identifiable transition zone of caliber or obstructive etiology. Findings ma y represent ileus or enterocolitis. 2. Status post cholecystectomy with moderate reservoir affect and moderate common bile duct and mild pancreatic duct dilatation. 3. Partially calcified 9 mm right lung base nodule. Radiation optimization: All CT scans at this facility use at least one of these dose optimization bulmaro hniques: automated exposure control mA and/or kV adjustment per patient size (includes targeted exam s where dose is matched to clinical indication) or iterative reconstruction.
[2024-11-03] MEDS: MORPHINE SULFATE INJ 2 MG/ml SYRG IV ONE (03:13)
[2024-11-03] MEDS: ONDANSETRON HCL 4 MG/2 ML VIAL IV ONE (03:13)
[2024-11-03 03:45] VITALS: PULSE 66; RESP 15; O2SAT 92
--- NOTE | 2024-11-03 05:25 | DVHHP2 ---
History of Present Illness Reason for Visit: Acute abdominal pain History of Present Illness The patient is a 64-year-old female with past medical history of arthritis, COPD, GERD, hyperlipidemia, and hypertension who presented to [facility] ED with complaint of abdominal pain. Patient reports epigastric abdominal pain for the past 2 days, associated with nausea, vomiting, and nonbloody diarrhea. Patient was seen and evaluated in the ED, laboratory data shows WBC 6.8, platelets 397, sodium 140, potassium 4.1, BUN 17, creatinine 1.10, glucose 107, calcium 10.5, lipase 49, lactic acid 3.5 trending down to 1.9, blood pressure 158/74, heart rate 62, temperature 97.7 F, O2 saturation 94% on oxygen. Abdomen/pelvis CT revealing multiple moderately dilated fluid and gas-filled segment of small and large bowel exacerbating air-fluid levels without an identifiable transition zone of caliber obstructive etiology; findings may represent ileus or enterocolitis; partially calcified 9 mm right lung base nodule. Past Medical History Arthritis, COPD, GERD, High Lipids, HTN Past Surgical History Cholecystectomy, , Hysterectomy Family History Reviewed, noncontributory to the management of this case. Past Social History The patient lives at home, denies smoking, alcohol or illicit drugs abuse. Review of Systems Constitutional: No: Fever, Chills, Sweats, Weakness, Malaise, Other Eyes: No: Pain, Vision change, Conjunctivae inflammation, Eyelid inflammation, Other, Redness ENT: No: Ear pain, Ear discharge, Nose pain, Nose discharge, Nose congestion, Mouth pain, Mouth swelling, Throat pain, Throat swelling, Other Respiratory: Shortness of breath; No: Cough, Dry, SOB with excertion, Wheezing, Hemoptysis, Pleuritic Pain, Sputum, Wheezing, Other Cardiovascular: No: Chest Pain, Palpitations, Orthopnea, Paroxysmal Noc. Dyspnea, Edema, Lt Headedness, Other Gastrointestinal: Nausea, Vomiting, Abdominal Pain, Diarrhea; No: Constipation, Melena, Hematochezia, Other Genitourinary: No Dysuria, No Frequency, No Incontinence, No Hematuria, No Retention, No Other Musculoskeletal: No: other, neck pain, shoulder pain, arm pain, back pain, hand pain, leg pain, foot pain Skin: No: Rash, Lesions, Jaundice, Bruising, Other Neurological: No: Weakness, Numbness, Incoordination, Change in speech, Confusion, Seizures, Other Allergies: Coded Allergies: Codeine (Verified Allergy, Mild, 08/31/10) Ibuprofen (Verified Allergy, Mild, 08/31/10) Penicillins (Verified Allergy, Mild, 08/31/10) Exam Vital Signs Vital Signs Date Time Temp Pulse Resp B/P (MAP) Pulse Ox O2 Delivery O2 Flow Rate FiO2 11/03/24 03:52 62 12 158/74 11/03/24 03:45 92 Room Air* 0 21 11/03/24 03:45 97.7 97.7 General Appearance: Alert, Oriented X3, Cooperative, No acute distress HEENT: Atraumatic, PERRLA, EOMI, Mucous membr. moist/pink Respiratory: Normal air movement, Other (Shortness of breaths) Cardiovascular: Regular rate, Normal S1, Normal S2, No murmurs Abdominal: Normal bowel sounds, Soft, No tenderness, No hepatospenomegaly, No masses Extremities: No clubbing, No cyanosis, No edema, Normal pulses, No tenderness/swelling Skin: No rashes, No breakdown, No significant lesion Neuro: Normal gait, Normal speech, Strength at 5/5 X4 ext, Normal tone, Sensation intact, Cranial nerves 3-12 NL, Reflexes 2+ Psych/Mental Status: Mental status NL, Mood NL Labs/Xrays Labs Test 11/03/24 01:47 11/03/24 00:22 Range/Units Lactic Acid Level 1.9 0.4-2.0 mmol/L White Blood Count 6.8 4.4-10.8 10^3/uL Red Blood Count 5.22 H 4.0-5.20 10^6/uL Hemoglobin 15.6 12.2-16.2 g/dL Hematocrit 47.0 H 36.0-46.0 % Mean Corpuscular Volume 90.2 80.0-100.0 fL Mean Corpuscular Hemoglobin 29.9 28.0-32.0 pg Mean Corpuscular Hemoglobin Concent 33.2 32.0-36.0 g/dL Red Cell Distribution Width 14.3 11.8-14.3 % Platelet Count 397 140-450 10^3/uL Mean Platelet Volume 7.2 6.9-10.8 fL Neutrophils (%) (Auto) 59.6 37.0-80.0 % Lymphocytes (%) (Auto) 28.6 10.0-50.0 % Monocytes (%) (Auto) 8.5 0.0-12.0 % Eosinophils (%) (Auto) 2.5 0.0-7.0 % Basophils (%) (Auto) 0.8 0.0-2.0 % Neutrophils # (Auto) 4.1 1.6-8.6 10 ^3/uL Lymphocytes # (Auto) 2.0 0.4-5.4 10 ^3/uL Monocytes # (Auto) 0.6 0-1.3 10 ^3/uL Eosinophils # (Auto) 0.2 0-0.8 10 ^3/uL Basophils # (Auto) 0.1 0-0.2 10 ^3/uL Nucleated Red Blood Cells 0.1 % Sodium Level 140 136-145 mmol/L Potassium Level 4.1 3.5-5.1 mmol/L Chloride Level 96 L 98-107 mmol/L Carbon Dioxide Level 34 H 20-31 mmol/L Anion Gap 10 5-15 Blood Urea Nitrogen 17 9-23 mg/dL Creatinine 1.10 H 0.550-1.02 mg/dL Glomerular Filtration Rate Calc 57 >90 mL/min BUN/Creatinine Ratio 15.5 10.0-20.0 Serum Glucose 107 H 74-106 mg/dL Calcium Level 10.5 H 8.7-10.4 mg/dL Total Bilirubin 0.6 0.2-1.0 mg/dL Aspartate Amino Transferase (AST) 22 13-40 U/L Alanine Aminotransferase (ALT) 26 7-40 U/L Alkaline Phosphatase 104 46-116 U/L Total Protein 8.8 H 5.7-8.2 g/dL Albumin 4.6 3.2-4.8 g/dL Lipase 49 12-53 U/L PATIENT: SIERRA NASH ACCT: [id number] UNIT: [id number] : 1960 LOC: ER ROOM / BED: / AGE / SEX: 64 / F ADM STATUS: REG ER SERVICE 0132 ORDERING PHYSICIAN: MARQUES HARGROVE MD PROCEDURE(s): ABPLIV - CT AB PEL WITH IV CON ONLY REASON: Abdominal pain, nausea, vomiting, elevated lactic acid ORDER NUMBER(s): [id number], ACCESSION NUMBER(s): [id number] Exam: CT CT AB PEL WITH IV CON ONLY History: Abdominal pain, nausea, vomiting, elevated lactic acid COMPARISON: CT CT AB PEL WO CON-NO ORAL OR IV on DOS: 04/08/24, CT ABD PELVIS WO CONTRAST on DOS: 05/04/20 Technique: Multidetector spiral CT of the abdomen and pelvis was performed from lung bases to pubic symphysis. Intravenous contrast was administered during this examination. Portal venous imaging was obtained. Axial, coronal and sagittal multiplanar reformats were performed by the technologist on a separate workstation. Radiation Dose: 1. Abdomen/Pelvis: CTDIvol 5.07 mGy, DLP 274.92 mGy*cm. CONTRAST: Type of contrast: Omniscan 300 Contrast injected: 100 ml Findings: Lung Bases: No acute or significant lung base finding. Partially calcified 9 mm nodule within the posterolateral right lung base. Normal heart size. No pleural or pericardial effusion. Liver: The liver is normal in size. No focal lesions. Normal hepatic vascular enhancement. Gallbladder and Biliary Tree: Status post cholecystectomy with moderate reservoir effect. The common bile duct measures 11 mm at the level of the pancre atic head. The pancreatic duct measures approximately 4 mm. Spleen: Unremarkable Pancreas: The pancreas is normal in appearance without focal lesions or abnormal enhancement. Adrenal Glands: Unremarkable Kidneys: No nephrolithiasis or hydronephrosis. Bilateral renal cortical cysts measure up to 12 mm. Bladder: Unremarkable Bowel: The stomach is distended and fluid-filled. Multiple moderately dilated fluid and gas-filled segments of small and large bowel exhibiting air-fluid levels without an identifiable transition zone of caliber or obstructive etiology. The appendix is not visualized; however, no secondary findings of acute appendicitis identified. Ascites: Absent Lymphadenopathy: No mesenteric, retroperitoneal or periportal lymphadenopathy. Abdominal Wall and Mesentery: Unremarkable. Vasculature: The visualized abdominal aorta is normal in size and caliber. Atherosclerotic vascular calcifications. Abdominal and pelvic vessels demonstrate normal enhancement. Pelvic Organs: Unremarkable status post hysterectomy. Musculoskeletal: No aggressive focal bony lesions, acute fractures or dislocation. IMPRESSION: 1. Multiple moderately dilated fluid and gas-filled segments of small and large bowel exhibiting air-fluid levels without an identifiable transition zone of caliber or obstructive etiology. Findings may represent ileus or enterocolitis. 2. Status post cholecystectomy with moderate reservoir affect and moderate common bile duct and mild pancreatic duct dilatation. 3. Partially calcified 9 mm right lung base nodule. SEPSIS Sepsis Screen Date sepsis recognized/suspect: Nov 03, 2024 Time Sepsis recognized/suspect: 400 Recent Procedure: No On Antibiotic Therapy: No Respiratory Rate >20: No Heart Rate >90: No Temp<36 C (96.8 F) or >38.3 C: No SBP <90 or MAP <65 mmHG: No New Acute Mental Status Change: No Is the patient on CPAP, BIPAP,: No Physician Orders Urinalysis (11/03/24 00:10) Sodium Chloride 0.9% (11/03/24 01:30) Blood Culture (11/03/24 01:32) Ct Ab Pel With Iv Con Only (11/03/24 01:32) Npo Except Ice Chips (11/03/24 02:51) Npo (Nothing By Mouth) Diet (11/03/24 Breakfast) Vital Signs Date Time Temp Pulse Resp B/P (MAP) Pulse Ox O2 Delivery O2 Flow Rate FiO2 11/03/24 03:52 62 12 158/74 11/03/24 03:45 66 15 92 Room Air* 0 21 11/03/24 03:45 97.7 66 15 144/89 (107) 92 97.7 11/03/24 03:13 76 16 143/67 11/03/24 02:28 99.1 76 16 143/67 (92) 93 99.1 11/03/24 02:28 Room Air* 0 21 11/02/24 23:28 64 11/02/24 23:25 98.4 78 20 158/79 97 98.4 Laboratory Tests Test 11/03/24 00:22 11/03/24 01:47 Lactic Acid Level 3.5 mmol/L (0.4-2.0) *H 1.9 mmol/L (0.4-2.0) White Blood Count 6.8 10^3/uL (4.4-10.8) Medications Medications Dose Ordered Sig/Carlton Route Start Time Stop Time Status Last Admin Dose Admin Morphine Sulfate 2 mg ONCE ONCE IV 11/03/24 03:00 11/03/24 03:01 DC 11/03/24 03:13 2 MG Ondansetron HCl 4 mg ONCE ONCE IV 11/03/24 03:00 11/03/24 03:01 DC 11/03/24 03:13 4 MG Sodium Chloride 1,000 ml @ 130 mls/hr Q7H42M ONCE IV 11/03/24 01:30 11/03/24 09:11 11/03/24 02:28 130 MLS/HR Sodium Chloride 1,000 ml @ 1,000 mls/hr Q1H ONCE IV 11/03/24 00:15 11/03/24 01:14 DC 11/03/24 00:38 1,000 MLS/HR Sodium Chloride 1,000 ml @ 1,000 mls/hr Q1H ONCE IV 11/03/24 01:30 11/03/24 02:29 DC 11/03/24 02:27 1,000 MLS/HR Assessment/Plan Assessment/Plan Abdominal pain Ileus Lung nodule Enterocolitis Lactic acidemia Plan 1. Admit to med surge unit 2. Breathing treatment 3. Pain control management 4. IV antibiotic management 5. Management of fluids and electrolytes 6. Consultation for hospitalist 7. Diagnostic test abdomen/pelvis CT 8. DVT prophylaxis-on SCDs 9. Repeat labs CBC, CMP in a.m. 10. Home medication reviewed and reconciled 11. Continue with current medical management 12. Treatment plan discussed with patient and RN. Patient verbalized understanding. Plan discussed with: Patient, Other (RN) Problem List: (1) Abdominal pain (2) Ileus (3) Lung nodule (4) Enterocolitis (5) Lactic acidemia Date of Service: Nov 03, 2024 Billing Provider: J CARLOS CHAPMAN DNP Common Visit Codes: [id number] INP/OBS CARE (HIGH) J CARLOS CHAPMAN DNP Nov 03, 2024 05:25
[2024-11-03] MEDS ORDERED: DOCUSATE SOD 100 MG CAP PO PRN (05:30)
[2024-11-03] MEDS ORDERED: MORPHINE SULFATE INJ 2 MG/ml SYRG IV PRN (05:30)
[2024-11-03] MEDS ORDERED: ONDANSETRON HCL 4 MG/2 ML VIAL IV PRN (05:30)
[2024-11-03] MEDS ORDERED: NITROGLYCERIN 0.4 MG SL TAB SL PRN (05:30)
[2024-11-03] MEDS: SODIUM CHLORIDE 0.9% 1,000 ML IV SCH (05:36)
[2024-11-03 05:59] LABS: Hematocrit 39.2 % (36.0-46.0); Hemoglobin 12.9 g/dL (12.2-16.2); Mean Corpuscular Hemoglobin 30.3 pg (28.0-32.0); Mean Corpuscular Volume 91.8 fL (80.0-100.0); Nucleated Red Blood Cells % 0.3 %
[2024-11-03 06:19] LABS: Alanine Aminotransferase 21 U/L (7-40); Albumin 3.5 g/dL (3.2-4.8); Alkaline Phosphatase 80 U/L (46-116); Anion Gap 8 (5-15); BUN/Creatinine Ratio 13.2 (10.0-20.0); Blood Urea Nitrogen 12 mg/dL (9-23); Calcium 8.7 mg/dL (8.7-10.4); Carbon Dioxide 25 mmol/L (20-31); Chloride 106 mmol/L (98-107); Glucose 95 mg/dL (74-106); Potassium 4.5 mmol/L (3.5-5.1); Sodium 139 mmol/L (136-145); Total Protein 6.6 g/dL (5.7-8.2)
[2024-11-03 06:20] LABS: Bilirubin, Total 0.4 mg/dL (0.2-1.0)
[2024-11-03 06:41] LABS: Urine Protein, UAD 1+ (Negative)
[2024-11-03 07:27] VITALS: PULSE 86; RESP 12; O2SAT 97
--- NOTE | 2024-11-03 11:59 | DVHPN2 ---
Subjective The patient is seen and examined at bedside. Complain of abdominal pain. Reviewed: Care Plan, H&P, Labs, Medications, Previous Orders, Radiology Changes from previous H/P or p: No Changes Eyes: No Pain, No Vision change, No Conjunctivae inflammation, No Eyelid inflammation, No Other, No Redness ENT: No Ear pain, No Ear discharge, No Nose pain, No Nose discharge, No Nose congestion, No Mouth pain, No Mouth swelling, No Throat pain, No Throat swelling, No Other Cardiovascular: No Chest Pain, No Palpitations, No Orthopnea, No Paroxysmal Noc. Dyspnea, No Edema, No Lt Headedness, No Other Respiratory: No Cough, No Dry; Shortness of breath; No SOB with excertion, No Wheezing, No Hemoptysis, No Pleuritic Pain, No Sputum, No Other Gastrointestinal: Nausea, Vomiting, Abdominal Pain, Diarrhea; No Constipation, No Melena, No Hematochezia, No Other Genitourinary: No Dysuria, No Frequency, No Incontinence, No Hematuria, No Retention, No Other Musculoskeletal: No other, No neck pain, No shoulder pain, No arm pain, No back pain, No hand pain, No leg pain, No foot pain Skin: No Rash, No Lesions, No Jaundice, No Bruising, No Other Objective Vitals Vital Signs Date Time Temp Pulse Resp B/P (MAP) Pulse Ox O2 Delivery O2 Flow Rate FiO2 11/03/24 11:00 98.3 70 14 134/66 (88) 100 98.3 11/03/24 07:27 Nasal Cannula* 1 24 Intake/Output Intake and Output 11/03/24 06:59 Intake Total 2190 ml Balance 2190 ml Intake IV Total 2190 ml General Appearance: Alert, Cooperative HEENT: Atraumatic, PERRLA, EOMI, Mucous membr. moist/pink Neck: Supple Lungs: Clear to auscultation, Normal air movement Cardiovascular: Regular rate, Normal S1, Normal S2, No murmurs, Gallops, Rubs Abdomen: Normal bowel sounds, Soft, No tenderness Neuro: Cranial nerves 3-12 NL Psych/Mental Status: Mental status NL Medications Current Medications Medications Dose Ordered Sig/[place] Route Start Time Stop Time Status Last Admin Dose Admin Sodium Chloride 1,000 ml @ 60 mls/hr [id number] IV 11/03/24 05:30 11/03/24 05:36 60 MLS/HR Ondansetron HCl 4 mg Q4HP PRN IV 11/03/24 05:30 Docusate Sodium 100 mg BIDPRN PRN PO 11/03/24 05:30 Acetaminophen 650 mg Q6HP PRN PO 11/03/24 05:30 Morphine Sulfate 2 mg Q4HPRN PRN IV 11/03/24 05:30 Nitroglycerin 0.4 mg Q5MINP PRN SL 11/03/24 05:30 Morphine Sulfate 2 mg Q30M PRN IV 11/03/24 05:30 Laboratory Results Laboratory Tests 11/03/24 05:42 Chemistry Test 11/03/24 00:22 11/03/24 05:42 Albumin 4.6 g/dL (3.2-4.8) 3.5 g/dL (3.2-4.8) Calcium Level 10.5 mg/dL (8.7-10.4) H 8.7 mg/dL (8.7-10.4) Total Protein 8.8 g/dL (5.7-8.2) H 6.6 g/dL (5.7-8.2) Lipid panel Test 11/03/24 00:22 Lipase 49 U/L (12-53) LFT Test 11/03/24 00:22 11/03/24 05:42 Alanine Aminotransferase (ALT) 26 U/L (7-40) 21 U/L (7-40) Alkaline Phosphatase 104 U/L (46-116) 80 U/L (46-116) Aspartate Amino Transferase (AST) 22 U/L (13-40) 26 U/L (13-40) Total Bilirubin 0.6 mg/dL (0.2-1.0) 0.4 mg/dL (0.2-1.0) Urinalysis Test 11/03/24 05:46 Urine Color Yellow (Yellow) Urine Clarity Clear (Clear) Urine pH 6.0 (5.0-9.0) Urine Specific [place] > 1.050 (1.001-1.035) Urine Protein 1+ (Negative) H Urine Ketones Negative (Negative) Urine Blood Negative /uL (Negative) Urine Nitrite Negative (Negative) Urine Bilirubin Negative (Negative) Urine Urobilinogen Normal mg/dL (Negative) Urine Leukocyte Esterase Negative /uL (Negative) Urine RBC 1 /hpf (0 - 4) Urine Microscopic WBC 1 /HPF (0-5) Urine Squamous Epithelial Cells Few /hpf (<5) Urine Bacteria None seen /hpf (None Seen) Urine Glucose Normal mg/dL (Normal) Labs and/or images reviewed: Labs reviewed by me Assessment/Plan Assessment/Plan Abdominal pain Ileus Lung nodule Enterocolitis Lactic acidemia Plan Continuing current management Continuing with nebulization Continuing with IV antibiotic. Continuing with [place] for pain control. We will monitor lactic acid. Outpatient follow up for the lung nodule This medical document was created using an electronic medical record system with [employer] computerized dictation system. Although this document has been carefully reviewed, there may still be some phonetic and typographical errors. These areas are purely typographical due to imperfections of the software programs, and do not reflect any compromise in the patient's medical care. Plan discussed with: Patient Date of Service: Nov 03, 2024 Billing Provider: SUNDAR WHITESIDE MD Common Visit Codes: [id number] INP/OBS CARE(HIGH) SUNDAR WHITESIDE MD Nov 03, 2024 11:59
[2024-11-03 14:07] VITALS: BP 123/72; PULSE 60; RESP 18; TEMP 98; O2SAT 95
[2024-11-03 17:01] VITALS: BP 113/63; PULSE 74; RESP 16; TEMP 97.9; O2SAT 95
[2024-11-03] MEDS: MORPHINE SULFATE INJ 2 MG/ml SYRG IV PRN (19:54)
[2024-11-03 21:00] VITALS: BP 133/53; PULSE 68; RESP 18; TEMP 98.6; O2SAT 93
[2024-11-04 05:00] VITALS: BP 149/78; PULSE 53; RESP 18; TEMP 98.4; O2SAT 97
[2024-11-04 08:00] VITALS: PULSE 74; RESP 18; O2SAT 94
[2024-11-04 08:17] LABS: Hematocrit 34.5 % (36.0-46.0); Hemoglobin 11.5 g/dL (12.2-16.2); Mean Corpuscular Hemoglobin 30.0 pg (28.0-32.0); Mean Corpuscular Volume 90.3 fL (80.0-100.0); Nucleated Red Blood Cells % 0.2 %
[2024-11-04 08:18] LABS: Alanine Aminotransferase 17 U/L (7-40); Alkaline Phosphatase 69 U/L (46-116); Anion Gap 11 (5-15); BUN/Creatinine Ratio 13.9 (10.0-20.0); Blood Urea Nitrogen 10 mg/dL (9-23); Carbon Dioxide 24 mmol/L (20-31); Chloride 107 mmol/L (98-107); Sodium 142 mmol/L (136-145)
[2024-11-04 08:19] LABS: Total Protein 6.3 g/dL (5.7-8.2)
[2024-11-04 08:20] LABS: Albumin 3.3 g/dL (3.2-4.8); Bilirubin, Total 0.6 mg/dL (0.2-1.0); Calcium 6.9 mg/dL (8.7-10.4); Glucose 56 mg/dL (74-106); Potassium 3.4 mmol/L (3.5-5.1)
[2024-11-04 09:00] VITALS: BP 149/87; PULSE 74; RESP 18; TEMP 96.8; O2SAT 94
[2024-11-04 13:00] VITALS: BP 144/74; PULSE 63; RESP 16; TEMP 98.1; O2SAT 97
--- NOTE | 2024-11-04 14:31 | DVHPN2 ---
Subjective The patient is seen and examined at bedside. Complain of abdominal pain. Patient said she is hungry. Still waiting for surgeon. Reviewed: Care Plan, H&P, Labs, Medications, Previous Orders, Radiology Changes from previous H/P or p: No Changes Eyes: No Pain, No Vision change, No Conjunctivae inflammation, No Eyelid inflammation, No Other, No Redness ENT: No Ear pain, No Ear discharge, No Nose pain, No Nose discharge, No Nose congestion, No Mouth pain, No Mouth swelling, No Throat pain, No Throat swelling, No Other Cardiovascular: No Chest Pain, No Palpitations, No Orthopnea, No Paroxysmal Noc. Dyspnea, No Edema, No Lt Headedness, No Other Respiratory: No Cough, No Dry; Shortness of breath; No SOB with excertion, No Wheezing, No Hemoptysis, No Pleuritic Pain, No Sputum, No Other Gastrointestinal: Nausea, Vomiting, Abdominal Pain, Diarrhea; No Constipation, No Melena, No Hematochezia, No Other Genitourinary: No Dysuria, No Frequency, No Incontinence, No Hematuria, No Retention, No Other Musculoskeletal: No other, No neck pain, No shoulder pain, No arm pain, No back pain, No hand pain, No leg pain, No foot pain Skin: No Rash, No Lesions, No Jaundice, No Bruising, No Other Objective Vitals Vital Signs Date Time Temp Pulse Resp B/P (MAP) Pulse Ox O2 Delivery O2 Flow Rate FiO2 11/04/24 13:00 98.1 63 16 144/74 (97) 97 98.1 11/03/24 20:00 Room Air* 0 21 Intake/Output Intake and Output 11/04/24 07:00 Intake Total 0 ml Balance 0 ml Intake Oral 0 ml # Voids 4 General Appearance: Alert, Cooperative HEENT: Atraumatic, PERRLA, EOMI, Mucous membr. moist/pink Neck: Supple Lungs: Clear to auscultation, Normal air movement Cardiovascular: Regular rate, Normal S1, Normal S2, No murmurs, Gallops, Rubs Abdomen: Normal bowel sounds, Soft, No tenderness Neuro: Cranial nerves 3-12 NL Psych/Mental Status: Mental status NL Medications Current Medications Medications Dose Ordered Sig/[place] Route Start Time Stop Time Status Last Admin Dose Admin Sodium Chloride 1,000 ml @ 60 mls/hr [id number] IV 11/03/24 05:30 11/03/24 05:36 60 MLS/HR Ondansetron HCl 4 mg Q4HP PRN IV 11/03/24 05:30 Docusate Sodium 100 mg BIDPRN PRN PO 11/03/24 05:30 Acetaminophen 650 mg Q6HP PRN PO 11/03/24 05:30 Morphine Sulfate 2 mg Q4HPRN PRN IV 11/03/24 05:30 11/04/24 08:45 2 MG Nitroglycerin 0.4 mg Q5MINP PRN SL 11/03/24 05:30 Morphine Sulfate 2 mg Q30M PRN IV 11/03/24 05:30 Laboratory Results Laboratory Tests 11/04/24 05:34 Chemistry Test 11/04/24 05:34 Albumin 3.3 g/dL (3.2-4.8) Calcium Level 6.9 mg/dL (8.7-10.4) L Total Protein 6.3 g/dL (5.7-8.2) LFT Test 11/04/24 05:34 Alanine Aminotransferase (ALT) 17 U/L (7-40) Alkaline Phosphatase 69 U/L (46-116) Aspartate Amino Transferase (AST) 19 U/L (13-40) Total Bilirubin 0.6 mg/dL (0.2-1.0) Urinalysis Test 11/03/24 05:46 Urine Color Yellow (Yellow) Urine Clarity Clear (Clear) Urine pH 6.0 (5.0-9.0) Urine Specific [place] > 1.050 (1.001-1.035) Urine Protein 1+ (Negative) H Urine Ketones Negative (Negative) Urine Blood Negative /uL (Negative) Urine Nitrite Negative (Negative) Urine Bilirubin Negative (Negative) Urine Urobilinogen Normal mg/dL (Negative) Urine Leukocyte Esterase Negative /uL (Negative) Urine RBC 1 /hpf (0 - 4) Urine Microscopic WBC 1 /HPF (0-5) Urine Squamous Epithelial Cells Few /hpf (<5) Urine Bacteria None seen /hpf (None Seen) Urine Glucose Normal mg/dL (Normal) Microbiology Microbiology Date/Time Source Procedure Growth Status 11/03/24 01:47 Blood Blood Culture - Preliminary NO GROWTH AFTER 24 HOURS OF INCUBATION. Resulted Labs and/or images reviewed: Labs reviewed by me Assessment/Plan Assessment/Plan Abdominal pain Ileus Lung nodule Enterocolitis Lactic acidemia Plan Continuing current management Continuing with nebulization Continuing with IV antibiotic. Continuing with [place] for pain control. We will monitor lactic acid. Outpatient follow up for the lung nodule waiting for surgeon will start diet with clear liquid diet. This medical document was created using an electronic medical record system with [employer] computerized dictation system. Although this document has been carefully reviewed, there may still be some phonetic and typographical errors. These areas are purely typographical due to imperfections of the software programs, and do not reflect any compromise in the patient's medical care. Plan discussed with: Patient My Orders Orders - SUNDAR WHITESIDE MD Procedure Category Date Status Time Complete Blood Count LAB 11/05/24 Verified 05:00 Complete Blood Count LAB 11/06/24 Verified 05:00 Complete Blood Count LAB 11/07/24 Verified 05:00 Complete Blood Count LAB 11/08/24 Verified 05:00 Basic Metabolic Panel LAB 11/05/24 Verified 05:00 Basic Metabolic Panel LAB 11/06/24 Verified 05:00 Basic Metabolic Panel LAB 11/07/24 Verified 05:00 Basic Metabolic Panel LAB 11/08/24 Verified 05:00 * Surgical Consult CONS 11/04/24 Transmitted 11:55 Date of Service: Nov 04, 2024 Billing Provider: SUNDAR WHITESIDE MD Common Visit Codes: [id number] INP/OBS CARE(HIGH) SUNDAR WHITESIDE MD Nov 04, 2024 14:31
--- NOTE | 2024-11-04 14:36 | DVHINCON2 ---
Consultation - Surgical Date Seen: Nov 04, 2024 Referring Physician Reason for Consultation Ileus? History of Present Illness History of Present Illness Mrs. Mejía is a 64-year-old female who presented to the ED 2 days ago due to intermittent episodes of bloating, nausea, vomiting, diarrhea. Patient states that these episodes have been going on for the past year and they have become more frequent in nature. Now she states that the episodes come on average 2 weeks out of the month. They are associated with abdominal pain which she has can occur crampy and also gives her the sensation of being hungry. She denies any blood in the stool or blood in the vomit. She regularly goes to the bathroom daily with solid bowel movements, but when this episode happened she gets diarrhea. States that she is scheduled for a colonoscopy in December and that she had a upper endoscopy over 5 years ago and it was unremarkable. Denies any fevers, chills, changes in urinary habits. Denies any personal family history of colon/GI tract cancer. She has had a 40 lb weight loss since this episode started happening a year ago. Denies any loss of appetite and continues to eat normally unless she is having more of those episodes. Past Medical/Surgical History Past Medical/Surgical History PMH rheumatoid arthritis, COPD, GERD, hyperlipidemia, hypertension, lupus PSH vaginal hysterectomy, section x2 Family and Social History Family and Social History Father bone cancer Cousins x2 breast cancer T Ob occasional ETOH/drugs denies Allergies and medications Allergies: Coded Allergies: Codeine (Verified Allergy, Mild, 08/31/10) Ibuprofen (Verified Allergy, Mild, 08/31/10) Penicillins (Verified Allergy, Mild, 08/31/10) Home Meds Active Scripts Acetaminophen (Acetaminophen) 500 Mg Tab, 500 MG PO Q4HPRN, #30 TAB 0 Refills Prov:JAMIL MCKEE 11/16/23 Clindamycin Hcl (Clindamycin Hcl) 300 Mg Cap, 1 CAP PO QID for 7 Days, #28 CAP 0 Refills Prov:JAMIL MCKEE 11/16/23 Reported Medications Docusate Sodium (Colace) 100 Mg Cap, 100 MG PO, CAP 04/09/15 Calcium Carbonate-Vitamin D (Calcium 600-D) 1 Tab Tab, 1 TAB PO BID, #60 TAB 11 Refills 04/09/15 Folic Acid (FOLIC ACID) 1 Mg Tb, 1 TAB PO DAILY, #90 TAB 1 Refill 04/09/15 Meloxicam (Meloxicam) 15 Mg Tab, 15 MG PO, TAB 04/09/15 Methotrexate (Methotrexate) 2.5 Mg Tab, 2.5 MG PO, TAB 04/09/15 Omeprazole (Gnp Omeprazole) 20 Mg Tab, 20 MG PO, TAB 04/09/15 Albuterol Sulfate (Albuterol Sulfate) 0.5 % Neb 03/28/11 Budesonide-Formoterol Fumarate (Symbicort) 1 Aer Aer 03/28/11 [Triamcinoldine] No Conflict Check 03/28/11 Hydroxychloroquine Sulfate (Hydroxychloroquine Sulfat) 200 Mg Tab, DAILY 03/28/11 Sumatriptan Succinate (Imitrex) 50 Mg Tab 03/28/11 Hydroxyzine Hcl (Vistaril) 10 Mg Tb 03/28/11 Ferrous Sulfate (Fe Tabs) 325 Mg Tab, DAILY 03/28/11 Lisinopril (Lisinopril) 10 Mg Tab 03/28/11 Trazodone Hcl (Trazodone Hcl) 100 Mg Tab, DAILY 03/28/11 Bupropion Hcl (Budeprion Sr) 150 Mg Tab, DAILY 03/28/11 Methocarbamol (Methocarbamol) 750 Mg Tab 03/28/11 Gabapentin (Gabapentin) 300 Mg Cap, TID 03/28/11 Hydrocodone-Acetaminophen (Hydrocodone Bitartrate/Ap) 1 Tab Tab 03/28/11 Prednisone (Sterapred Ds) 10 Mg Jose Guadalupe 03/28/11 Review of systems Review of Systems: HEENT:Normal, CVS:Normal, RESPIRATORY:Normal, GI:Abnormal (See HPI), :Normal, MSK:Normal, NEURO:Normal Examination Vital signs Vital Signs Date Time Temp Pulse Resp B/P (MAP) Pulse Ox O2 Delivery O2 Flow Rate FiO2 11/04/24 13:00 98.1 63 16 144/74 (97) 97 98.1 11/03/24 20:00 Room Air* 0 21 Laboratory Labs Test 11/04/24 05:34 11/03/24 05:46 11/03/24 01:47 11/03/24 00:22 Range/Units White Blood Count 4.6 # 4.4-10.8 10^3/uL Red Blood Count 3.82 L 4.0-5.20 10^6/uL Hemoglobin 11.5 L 12.2-16.2 g/dL Hematocrit 34.5 #L 36.0-46.0 % Mean Corpuscular Volume 90.3 80.0-100.0 fL Mean Corpuscular Hemoglobin 30.0 28.0-32.0 pg Mean Corpuscular Hemoglobin Concent 33.2 32.0-36.0 g/dL Red Cell Distribution Width 14.1 11.8-14.3 % Platelet Count 278 140-450 10^3/uL Mean Platelet Volume 7.7 6.9-10.8 fL Neutrophils (%) (Auto) 33.9 L 37.0-80.0 % Lymphocytes (%) (Auto) 49.0 10.0-50.0 % Monocytes (%) (Auto) 9.5 0.0-12.0 % Eosinophils (%) (Auto) 6.5 0.0-7.0 % Basophils (%) (Auto) 1.1 0.0-2.0 % Neutrophils # (Auto) 1.6 1.6-8.6 10 ^3/uL Lymphocytes # (Auto) 2.3 0.4-5.4 10 ^3/uL Monocytes # (Auto) 0.4 0-1.3 10 ^3/uL Eosinophils # (Auto) 0.3 0-0.8 10 ^3/uL Basophils # (Auto) 0 0-0.2 10 ^3/uL Nucleated Red Blood Cells 0.2 % Sodium Level 142 136-145 mmol/L Potassium Level 3.4 L 3.5-5.1 mmol/L Chloride Level 107 98-107 mmol/L Carbon Dioxide Level 24 20-31 mmol/L Anion Gap 11 5-15 Blood Urea Nitrogen 10 9-23 mg/dL Creatinine 0.72 0.550-1.02 mg/dL Glomerular Filtration Rate Calc 94 >90 mL/min BUN/Creatinine Ratio 13.9 10.0-20.0 Serum Glucose 56 L 74-106 mg/dL Calcium Level 6.9 L 8.7-10.4 mg/dL Total Bilirubin 0.6 0.2-1.0 mg/dL Aspartate Amino Transferase (AST) 19 13-40 U/L Alanine Aminotransferase (ALT) 17 7-40 U/L Alkaline Phosphatase 69 46-116 U/L Total Protein 6.3 5.7-8.2 g/dL Albumin 3.3 3.2-4.8 g/dL Urine Color Yellow Yellow Urine Clarity Clear Clear Urine pH 6.0 5.0-9.0 Urine Specific [place] > 1.050 H 1.001-1.035 Urine Protein 1+ H Negative Urine Ketones Negative Negative Urine Blood Negative Negative /uL Urine Nitrite Negative Negative Urine Bilirubin Negative Negative Urine Urobilinogen Normal Negative mg/dL Urine Leukocyte Esterase Negative Negative /uL Urine RBC 1 0 - 4 /hpf Urine Microscopic WBC 1 0-5 /HPF Urine Squamous Epithelial Cells Few <5 /hpf Urine Bacteria None seen None Seen /hpf Urine Glucose Normal Normal mg/dL Lactic Acid Level 1.9 0.4-2.0 mmol/L Lipase 49 12-53 U/L Microbiology Date/Time Source Procedure Growth Status 11/03/24 01:47 Blood Blood Culture - Preliminary NO GROWTH AFTER 24 HOURS OF INCUBATION. Resulted Examination: GENERAL:Normal (Thin well-appearing), HEENT:Normal (No icterus), ABDOMEN:Abnormal (Slight distention, infraumbilical scar well healed, Pfannenstiel scar well healed, soft, depressible, nontender) Problem List/Assessment/Plan Problems: (1) Abdominal distension (2) Abdominal pain Assessment and Plan Mrs. Mejía is a 64-year-old female who presented several days ago to the hospital due to recurrent episodes for the last year of abdominal pain/bloating, associated with nausea vomiting and diarrhea. I reviewed the patient's CT from admission day and I saw an extremely large stomach all the way through to the 2nd portion of the duodenum on the 3rd portion of the duodenum small bowel collapse says but I can not discretely see any mass in the area, unclear why this is happening. Past ligament of Treitz the small bowel is dilated the whole way through to the cecum with thickened decker, giving it an appearance of enteritis. Also the entire colon is distended with large volumes of stool. Unclear at this point why this patient is having these recurrent symptoms, and they are happening on average 2 weeks out of the month. In this patient we need to rule out GI malignancies, IBD/IBS, functional pathology of the GI tract, SMA syndrome. Given that the patient has never had a colonoscopy, this is highly recommended. Also given the collapse of the duodenum in the 3rd portion, this also warrants a upper endoscopy to try and visualize the affected area. No surgical intervention recommended at this time. Recommend: 1. GI consultation for upper and lower endoscopies, for above-stated reasons. 2. Tumor markers: CEA, CA 125, CA 19-9 3. Do not show any light then workup functional disorders 4. No surgical intervention at this point. I will sign off, please call with any questions or concerns Plan discussed with Plan discussed with: Patient Visit Coding Surgery Date of Service if different f: Nov 04, 2024 Billing Provider: CLYDE TAVARES MD Surgery Visit Codes: [id number] - INP CONSULT <110 MIN CLYDE TAVARES MD Nov 04, 2024 14:36
[2024-11-04 16:51] VITALS: BP 169/84; PULSE 72; RESP 16; TEMP 98; O2SAT 94
[2024-11-04 21:00] VITALS: BP 113/63; PULSE 69; RESP 17; TEMP 98.4; O2SAT 99
[2024-11-04] MEDS: LISINOPRIL 5 MG TAB PO SCH (21:46)
[2024-11-04] MEDS ORDERED: GABAPENTIN 300 MG CAP PO SCH (22:00)
[2024-11-05] VITALS (8 sets, daily range): BP systolic 128–173; BP diastolic 71–91; PULSE 58–76; RESP 16–18; TEMP 97.9–98.4; O2SAT 91–100
[2024-11-05] MEDS: hydrALAZINE HCL 20 MG/ML VL IV PRN (00:53)
[2024-11-05] MEDS: GABAPENTIN 300 MG CAP PO SCH (01:00)
[2024-11-05 05:31] LABS: Hematocrit 37.1 % (36.0-46.0); Hemoglobin 12.4 g/dL (12.2-16.2); Mean Corpuscular Hemoglobin 29.7 pg (28.0-32.0); Mean Corpuscular Volume 89.1 fL (80.0-100.0); Nucleated Red Blood Cells % 0.1 %
[2024-11-05 05:41] LABS: Anion Gap 9 (5-15); Carbon Dioxide 28 mmol/L (20-31); Chloride 106 mmol/L (98-107); Sodium 143 mmol/L (136-145)
[2024-11-05 05:47] LABS: BUN/Creatinine Ratio 20.3 (10.0-20.0); Blood Urea Nitrogen 16 mg/dL (9-23); Glucose 85 mg/dL (74-106)
[2024-11-05 05:51] LABS: Calcium 8.6 mg/dL (8.7-10.4); Potassium 3.2 mmol/L (3.5-5.1)
[2024-11-05] MEDS: DOCUSATE SOD 100 MG CAP PO SCH (09:11)
[2024-11-05] MEDS: FOLIC ACID 1 MG TAB PO SCH (09:11)
--- NOTE | 2024-11-05 12:17 | DVHPN2 ---
Subjective The patient is seen and examined at bedside. Complain of abdominal pain. Tolerate clear liquid diet Reviewed: Care Plan, H&P, Labs, Medications, Previous Orders, Radiology Changes from previous H/P or p: No Changes Eyes: No Pain, No Vision change, No Conjunctivae inflammation, No Eyelid inflammation, No Other, No Redness ENT: No Ear pain, No Ear discharge, No Nose pain, No Nose discharge, No Nose congestion, No Mouth pain, No Mouth swelling, No Throat pain, No Throat swelling, No Other Cardiovascular: No Chest Pain, No Palpitations, No Orthopnea, No Paroxysmal Noc. Dyspnea, No Edema, No Lt Headedness, No Other Respiratory: No Cough, No Dry; Shortness of breath; No SOB with excertion, No Wheezing, No Hemoptysis, No Pleuritic Pain, No Sputum, No Other Gastrointestinal: Nausea, Vomiting, Abdominal Pain, Diarrhea; No Constipation, No Melena, No Hematochezia, No Other Genitourinary: No Dysuria, No Frequency, No Incontinence, No Hematuria, No Retention, No Other Musculoskeletal: No other, No neck pain, No shoulder pain, No arm pain, No back pain, No hand pain, No leg pain, No foot pain Skin: No Rash, No Lesions, No Jaundice, No Bruising, No Other Objective Vitals Vital Signs Date Time Temp Pulse Resp B/P (MAP) Pulse Ox O2 Delivery O2 Flow Rate FiO2 11/05/24 09:12 90 22 140/71 11/05/24 09:00 98.4 93 98.4 11/04/24 20:00 Room Air* 0 21 Intake/Output Intake and Output 11/05/24 07:00 Intake Total 1320 ml Balance 1320 ml Intake Oral 1320 ml # Voids 5 # Bowel Movements 2 General Appearance: Alert, Cooperative HEENT: Atraumatic, PERRLA, EOMI, Mucous membr. moist/pink Neck: Supple Lungs: Clear to auscultation, Normal air movement Cardiovascular: Regular rate, Normal S1, Normal S2, No murmurs, Gallops, Rubs Abdomen: Normal bowel sounds, Soft, No tenderness Neuro: Cranial nerves 3-12 NL Psych/Mental Status: Mental status NL Medications Current Medications Medications Dose Ordered Sig/[place] Route Start Time Stop Time Status Last Admin Dose Admin Sodium Chloride 1,000 ml @ 60 mls/hr [id number] IV 11/03/24 05:30 11/03/24 05:36 60 MLS/HR Ondansetron HCl 4 mg Q4HP PRN IV 11/03/24 05:30 Acetaminophen 650 mg Q6HP PRN PO 11/03/24 05:30 Morphine Sulfate 2 mg Q4HPRN PRN IV 11/03/24 05:30 11/05/24 09:12 2 MG Nitroglycerin 0.4 mg Q5MINP PRN SL 11/03/24 05:30 Morphine Sulfate 2 mg Q30M PRN IV 11/03/24 05:30 Docusate Sodium 100 mg DAILY PO 11/05/24 10:00 11/05/24 09:11 100 MG Folic Acid 1 mg DAILY PO 11/05/24 10:00 11/05/24 09:11 1 MG Lisinopril 10 mg DAILY PO 11/04/24 22:00 11/05/24 09:11 10 MG Hydralazine HCl 10 mg Q6HR PRN IV 11/05/24 00:45 11/05/24 00:53 10 MG Gabapentin 300 mg TID PO 11/05/24 01:00 11/05/24 05:56 300 MG Laboratory Results Laboratory Tests 11/05/24 05:14 Chemistry Test 11/05/24 05:14 Calcium Level 8.6 mg/dL (8.7-10.4) L Urinalysis Test 11/03/24 05:46 Urine Color Yellow (Yellow) Urine Clarity Clear (Clear) Urine pH 6.0 (5.0-9.0) Urine Specific [place] > 1.050 (1.001-1.035) Urine Protein 1+ (Negative) H Urine Ketones Negative (Negative) Urine Blood Negative /uL (Negative) Urine Nitrite Negative (Negative) Urine Bilirubin Negative (Negative) Urine Urobilinogen Normal mg/dL (Negative) Urine Leukocyte Esterase Negative /uL (Negative) Urine RBC 1 /hpf (0 - 4) Urine Microscopic WBC 1 /HPF (0-5) Urine Squamous Epithelial Cells Few /hpf (<5) Urine Bacteria None seen /hpf (None Seen) Urine Glucose Normal mg/dL (Normal) Microbiology Microbiology Date/Time Source Procedure Growth Status 11/03/24 01:47 Blood Blood Culture - Preliminary NO GROWTH AFTER 48 HOURS OF INCUBATION. Resulted Labs and/or images reviewed: Labs reviewed by me Assessment/Plan Assessment/Plan Abdominal pain Ileus Lung nodule Enterocolitis Lactic acidemia Plan Continuing current management Continuing with nebulization Continuing with IV antibiotic. Continuing with [place] for pain control. We will monitor lactic acid. Outpatient follow up for the lung nodule Per surgeon, no surgery intervention need. Recommend GI consult. will consult GI will start diet with full liquid diet. This medical document was created using an electronic medical record system with [employer] computerized dictation system. Although this document has been carefully reviewed, there may still be some phonetic and typographical errors. These areas are purely typographical due to imperfections of the software programs, and do not reflect any compromise in the patient's medical care. Plan discussed with: Patient My Orders Orders - SUNDAR WHITESIDE MD Procedure Category Date Status Time Docusate Sodium PHA 11/05/24 In Process Capsule (Colace 10:00 Folic Acid Tablet PHA 11/05/24 In Process 10:00 Lisinopril Tablet PHA 11/04/24 In Process (Zestril Tablet) 22:00 Date of Service: Nov 05, 2024 Billing Provider: SUNDAR WHIETSIDE MD Common Visit Codes: [id number] INP/OBS CARE(HIGH) SUNDAR WHITESIDE MD Nov 05, 2024 12:17
[2024-11-06] VITALS (7 sets, daily range): BP systolic 128–158; BP diastolic 68–83; PULSE 57–80; RESP 16–18; TEMP 97.9–98.6; O2SAT 95–100
[2024-11-06] MEDS: ACETAMINOPHEN 325 MG TAB PO PRN (00:38)
[2024-11-06 06:25] LABS: Hematocrit 36.4 % (36.0-46.0); Hemoglobin 12.0 g/dL (12.2-16.2); Mean Corpuscular Hemoglobin 29.7 pg (28.0-32.0); Mean Corpuscular Volume 90.3 fL (80.0-100.0); Nucleated Red Blood Cells % 0.2 %
[2024-11-06 06:35] LABS: Anion Gap 9 (5-15); Carbon Dioxide 25 mmol/L (20-31); Sodium 143 mmol/L (136-145)
[2024-11-06 06:41] LABS: BUN/Creatinine Ratio 12.3 (10.0-20.0); Blood Urea Nitrogen 10 mg/dL (9-23)
[2024-11-06 06:43] LABS: Calcium 8.5 mg/dL (8.7-10.4); Chloride 109 mmol/L (98-107); Glucose 108 mg/dL (74-106); Potassium 3.1 mmol/L (3.5-5.1)
--- NOTE | 2024-11-06 13:23 | DVHINCON2 ---
GI Consult Consult Note GI consult note Date of Consultation: 11/06/2024 Chief Complaint: Possible PUD, gastritis Referring Physician: Dr. Morgan H&P: 64-year-old female admitted with complains of abdominal pain, mostly in the epigastric area which radiates down to her lower abdomen, worse in the past two days. Patient has nausea and vomiting, denies hematemesis, and also complaining of loose stool. Patient has been having similar symptoms on and off for the past one year. Usually abdominal pain triggers nausea vomiting and diarrhea. Patient avoids eating due to his symptoms, and has weight loss of 40 lb in this one year. Status post EGD and colonoscopy five years ago, unsure about results Status post surgical consult, was recommended to have an EGD and colonoscopy Past Medical History: Arthritis, COPD, GERD, High Lipids, HTN Past Surgical History: Cholecystectomy, , Hysterectomy Social History: NO smoking, drinking ETOH and use of illegal drugs. Family History: Noncontributory Review of Systems: Constitutional: no fever, chill, weight loss HEENT: no eye pain, no hearing loss, no oral lesion, no scleral icterus Heart: no chest pain, no chest pressure Lung: no cough, no dyspnea with exertion Abdomen: see HPI Physical exam: General: NAD, AAOX3 Chest: lung murphy clear to auscultation Heart: RRR, no murmur Abdomen: non-distended, + upper abdomen tenderness to palpation, +BS Labs: Labs Test 11/06/24 06:10 11/04/24 05:34 11/03/24 05:46 11/03/24 01:47 Range/Units White Blood Count 5.4 4.4-10.8 10^3/uL Red Blood Count 4.03 4.0-5.20 10^6/uL Hemoglobin 12.0 L 12.2-16.2 g/dL Hematocrit 36.4 36.0-46.0 % Mean Corpuscular Volume 90.3 80.0-100.0 fL Mean Corpuscular Hemoglobin 29.7 28.0-32.0 pg Mean Corpuscular Hemoglobin Concent 32.9 32.0-36.0 g/dL Red Cell Distribution Width 14.3 11.8-14.3 % Platelet Count 277 140-450 10^3/uL Mean Platelet Volume 7.6 6.9-10.8 fL Neutrophils (%) (Auto) 27.1 L 37.0-80.0 % Lymphocytes (%) (Auto) 49.9 10.0-50.0 % Monocytes (%) (Auto) 12.5 H 0.0-12.0 % Eosinophils (%) (Auto) 8.6 H 0.0-7.0 % Basophils (%) (Auto) 1.9 0.0-2.0 % Neutrophils # (Auto) 1.5 L 1.6-8.6 10 ^3/uL Lymphocytes # (Auto) 2.7 0.4-5.4 10 ^3/uL Monocytes # (Auto) 0.7 0-1.3 10 ^3/uL Eosinophils # (Auto) 0.5 0-0.8 10 ^3/uL Basophils # (Auto) 0.1 0-0.2 10 ^3/uL Nucleated Red Blood Cells 0.2 % Sodium Level 143 136-145 mmol/L Potassium Level 3.1 L 3.5-5.1 mmol/L Chloride Level 109 H 98-107 mmol/L Carbon Dioxide Level 25 20-31 mmol/L Anion Gap 9 5-15 Blood Urea Nitrogen 10 9-23 mg/dL Creatinine 0.81 0.550-1.02 mg/dL Glomerular Filtration Rate Calc 82 >90 mL/min BUN/Creatinine Ratio 12.3 10.0-20.0 Serum Glucose 108 H 74-106 mg/dL Calcium Level 8.5 L 8.7-10.4 mg/dL Total Bilirubin 0.6 0.2-1.0 mg/dL Aspartate Amino Transferase (AST) 19 13-40 U/L Alanine Aminotransferase (ALT) 17 7-40 U/L Alkaline Phosphatase 69 46-116 U/L Total Protein 6.3 5.7-8.2 g/dL Albumin 3.3 3.2-4.8 g/dL Urine Color Yellow Yellow Urine Clarity Clear Clear Urine pH 6.0 5.0-9.0 Urine Specific [place] > 1.050 H 1.001-1.035 Urine Protein 1+ H Negative Urine Ketones Negative Negative Urine Blood Negative Negative /uL Urine Nitrite Negative Negative Urine Bilirubin Negative Negative Urine Urobilinogen Normal Negative mg/dL Urine Leukocyte Esterase Negative Negative /uL Urine RBC 1 0 - 4 /hpf Urine Microscopic WBC 1 0-5 /HPF Urine Squamous Epithelial Cells Few <5 /hpf Urine Bacteria None seen None Seen /hpf Urine Glucose Normal Normal mg/dL Lactic Acid Level 1.9 0.4-2.0 mmol/L Test 11/03/24 00:22 Range/Units Lipase 49 12-53 U/L Microbiology Date/Time Source Procedure Growth Status 11/03/24 01:47 Blood Blood Culture - Preliminary NO GROWTH AFTER 72 HOURS OF INCUBATION. Resulted Imaging: CT abdomen pelvis IMPRESSION: 1. Multiple moderately dilated fluid and gas-filled segments of small and large bowel exhibiting air-fluid levels without an identifiable transition zone of caliber or obstructive etiology. Findings may represent ileus or enterocolitis. 2. Status post cholecystectomy with moderate reservoir affect and moderate common bile duct and mild pancreatic duct dilatation. 3. Partially calcified 9 mm right lung base nodule. Assessment: Abdominal pain Abnormal CT findings of ileus versus enterocolitis Weight loss Plan: Discussed with Dr. Garcia - Pt will be scheduled for an EGD tomorrow 11/07/2024. Pt was informed of the risks (bleeding, infection, perforation, reaction to sedation medications and cardiopulmonary arrest) and benefit and is agreeable to undergo the procedures. Recommend stool studies if diarrhea persists Discussed plan with patient, daughter Kylee by telephone conversation, and RN Thank you for this consult Date of Service: Nov 06, 2024 Billing Provider: ALYSSA RUBIO Common Visit Codes: CONSULT ONLY Consultation Codes: [id number] CONSULT <60MIN ALYSSA RUBIO Nov 06, 2024 13:23
--- NOTE | 2024-11-06 13:27 | DVHPN2 ---
Subjective Continues to complain of abdominal pain with on and off diarrhea Reviewed: Care Plan, H&P, Labs, Medications, Previous Orders, Radiology, Other (Consultation) Changes from previous H/P or p: No Changes Objective Vitals Vital Signs Date Time Temp Pulse Resp B/P (MAP) Pulse Ox O2 Delivery O2 Flow Rate FiO2 11/06/24 12:52 98.0 80 16 128/81 (97) 100 98.0 11/06/24 08:00 Room Air* 0 21 Intake/Output Intake and Output 11/06/24 07:00 Intake Total 400 ml Balance 400 ml Intake Oral 400 ml # Voids 10 General Appearance: Alert, Oriented X3, Cooperative HEENT: Atraumatic Lungs: Clear to auscultation, Normal air movement Cardiovascular: Regular rate, Normal S1, Normal S2 Abdomen: Normal bowel sounds, Soft, Other (Diffuse tenderness) Extremities: No edema Neuro: Normal speech, Cranial nerves 3-12 NL Psych/Mental Status: Mental status NL, Mood NL Medications Current Medications Medications Dose Ordered Sig/Carlton Route Start Time Stop Time Status Last Admin Dose Admin Sodium Chloride 1,000 ml @ 60 mls/hr [id number] IV 11/03/24 05:30 11/03/24 05:36 60 MLS/HR Ondansetron HCl 4 mg Q4HP PRN IV 11/03/24 05:30 Acetaminophen 650 mg Q6HP PRN PO 11/03/24 05:30 11/06/24 00:38 650 MG Morphine Sulfate 2 mg Q4HPRN PRN IV 11/03/24 05:30 11/06/24 08:41 2 MG Nitroglycerin 0.4 mg Q5MINP PRN SL 11/03/24 05:30 Morphine Sulfate 2 mg Q30M PRN IV 11/03/24 05:30 Docusate Sodium 100 mg DAILY PO 11/05/24 10:00 11/06/24 08:37 100 MG Folic Acid 1 mg DAILY PO 11/05/24 10:00 11/06/24 08:36 1 MG Lisinopril 10 mg DAILY PO 11/04/24 22:00 11/06/24 08:37 10 MG Hydralazine HCl 10 mg Q6HR PRN IV 11/05/24 00:45 11/05/24 00:53 10 MG Gabapentin 300 mg TID PO 11/05/24 01:00 11/06/24 05:37 300 MG Laboratory Results Laboratory Tests 11/06/24 06:10 Chemistry Test 11/06/24 06:10 Calcium Level 8.5 mg/dL (8.7-10.4) L Urinalysis Test 11/03/24 05:46 Urine Color Yellow (Yellow) Urine Clarity Clear (Clear) Urine pH 6.0 (5.0-9.0) Urine Specific [place] > 1.050 (1.001-1.035) Urine Protein 1+ (Negative) H Urine Ketones Negative (Negative) Urine Blood Negative /uL (Negative) Urine Nitrite Negative (Negative) Urine Bilirubin Negative (Negative) Urine Urobilinogen Normal mg/dL (Negative) Urine Leukocyte Esterase Negative /uL (Negative) Urine RBC 1 /hpf (0 - 4) Urine Microscopic WBC 1 /HPF (0-5) Urine Squamous Epithelial Cells Few /hpf (<5) Urine Bacteria None seen /hpf (None Seen) Urine Glucose Normal mg/dL (Normal) Microbiology Microbiology Date/Time Source Procedure Growth Status 11/03/24 01:47 Blood Blood Culture - Preliminary NO GROWTH AFTER 72 HOURS OF INCUBATION. Resulted Labs and/or images reviewed: Labs reviewed by me, Image(s) reviewed by me Assessment/Plan Assessment/Plan Covering: Persistent abdominal pain with nausea and on-and-off diarrhea with multiple moderately dilated fluid and gas-filled segments of small and large bowel exhibiting air-fluid levels without an identifiable transition zone of caliber or obstructive etiology on imaging study Status post cholecystectomy with moderate reservoir affect and moderate common bile duct and mild pancreatic duct dilatation. Partially calcified 9 mm right lung base nodule; to follow up as outpatient Normocytic anemia; most likely inflammatory Lactic acidosis with no clear etiology; resolved FAROOQ; most likely vasomotor nephropathy Hypokalemia in the setting of decreased oral intake and on-and-off diarrhea Essential hypertension Tobacco use disorder Malnutrition Reviewed lab work, available cultures (negative blood cultures), and available imaging studies No symptoms/signs of active bleeding Continue pain management as indicated Encouraged to increase oral intake; nutrition consult placed Continue antihypertensive medication/s and adjust according to blood pressure monitoring Counseled the patient on tobacco use cessation for 16 minutes GI is following; EGD is planned for tomorrow Evaluated by surgery Replace electrolytes as indicated Continue IV fluids Avoid nephrotoxic Continue monitoring Goals of care discussed with the patient for 20 minutes; full code Late Entry. This medical document was created using an electronic medical record system with computerized dictation system. Although this document has been carefully reviewed, there might still be some phonetic and typographical errors. These areas are purely typographical due to imperfections of the software programs, and do not reflect any compromise in the patient's medical care. Plan discussed with: Patient, Other (Nurse) Date of Service: Nov 06, 2024 Billing Provider: LETICIA GUZMAN MD Common Visit Codes: [id number] INP/OBS CARE(HIGH) Secondary Visit Codes: [id number] CHNG SMOKING >10MIN (16 minutes), 97150- ADVANCED CARE PLAN 30 MINUTES (20 minutes) LETICIA GUZMAN MD Nov 06, 2024 13:27
[2024-11-06 14:32] LABS: INR 1.01 (0.9-1.15); Prothrombin Time 10.7 sec (9.3-11.8)
[2024-11-06] MEDS: POTASSIUM CHLORIDE 40 MEQ, LIDOCAINE 1% (LOCAL ANESTH.) 4 ML in SODIUM CHL 0.9% 250 ML IV ONE (14:43)
[2024-11-07] VITALS (8 sets, daily range): BP systolic 132–153; BP diastolic 77–115; PULSE 55–74; RESP 14–20; TEMP 97.6–98.4; O2SAT 92–100
--- NOTE | 2024-11-07 05:39 | DVH ---
CHEST RADIOGRAPH Indication: pre-op Technique: Single frontal view of the chest was obtained COMPARISON: CHEST PORTABLE on DOS: 05/04/20 FINDINGS: Lines and Tubes: None Lungs: Clear Pleura: No effusion. No pneumothorax. Cardiomediastinal contours: Unremarkable Bones: Unremarkable IMPRESSION: No acute disease.
[2024-11-07 06:36] LABS: Hematocrit 38.1 % (36.0-46.0); Hemoglobin 12.7 g/dL (12.2-16.2); Mean Corpuscular Hemoglobin 30.2 pg (28.0-32.0); Mean Corpuscular Volume 90.8 fL (80.0-100.0); Nucleated Red Blood Cells % 0.0 %
[2024-11-07 06:45] LABS: Anion Gap 7 (5-15); Carbon Dioxide 27 mmol/L (20-31); Chloride 106 mmol/L (98-107); Potassium 4.4 mmol/L (3.5-5.1); Sodium 140 mmol/L (136-145)
[2024-11-07 06:46] LABS: Calcium 9.1 mg/dL (8.7-10.4)
[2024-11-07 06:51] LABS: BUN/Creatinine Ratio 16.9 (10.0-20.0); Blood Urea Nitrogen 15 mg/dL (9-23); Glucose 89 mg/dL (74-106)
[2024-11-07 06:52] LABS: Magnesium 1.7 mg/dL (1.6-2.6)
[2024-11-07] MEDS ORDERED: LIDOCAINE VISCOUS 2% 15ML UD ONE (14:22)
[2024-11-07] MEDS ORDERED: MIDAZOLAM HCL 2MG/2ML 2ml VIAL (1mg/ml) ONE (14:51)
[2024-11-07] MEDS ORDERED: fentaNYL CITRATE 100 MCG/2 ML VL ONE (14:51)
[2024-11-07] MEDS ORDERED: PROPOFOL 10 MG/ML 20 ML IV ONE (15:05)
--- NOTE | 2024-11-07 15:07 | DVHOP2 ---
Operative Report DATE OF OPERATION: 11/07/24 PROCEDURE: Upper Endoscopy with biopsy. PREOPERATIVE INDICATION: The patient is a 64 -year-old female undergoing endoscopy for weight loss nausea vomiting and abdominal pain POSTOPERATIVE DIAGNOSES: 1. 3 cm sliding-type hiatal hernia with slightly irregular squamocolumnar haroon ction minimal grade a erosive esophagitis 2. Edgw-ob-eklotpqf gastritis with some hyperemia erythema and superficial erosions and flecks of old blood 3. Otherwise normal examination up to the 2nd and 3rd part of the duodenum with good bile drainage and no GI bleed PROCEDURE PERFORMED BY: Nikki Garcia GI NURSE: Jhoana SCOPE: Olympus videoendoscope. ASA CLASS: 3 PREOPERATIVE MEDICATIONS: Mac sedation, Dr. Esparza PROCEDURE IN DETAIL: After obtaining an informed consent, the patient was placed on left lateral decubitus position. The patient was then sedated with the above medications. A bite block was placed between her teeth. The endoscope was then passed through the oropharynx, into the esophagus, and through the stomach and pylorus up to the second and third part of the duodenum. The endoscope was then withdrawn. The 2nd and 3rd part of the duodenum and the duodenal bulb were normal. There was good bile drainage. Duodenal biopsies were obtained The pre-pyloric area antrum showed mild gastritis and on retroflexion in the angularis there was a superficial erosions and ulcer with flecks of old blood The cardia and fundus were normal. Gastric biopsies were obtained. The endoscope was then withdrawn into distal esophagus. Patient had a 3 cm sliding-type hiatal hernia with slightly irregular squamocolumnar junction. GE junction biopsies were obtained. The remaining distal and proximal esophagus and oropharynx were unremarkable. The patient tolerated the procedure well without difficulty. COMPLICATIONS : None SPECIMENS: Duodenal Biopsies Gastric biopsies GE junction biopsies DISPOSITION: Transfer back to the floor Stable PLAN: 1. Await for biopsy result 2. Will place pt on Protonix 40 mg bid p.o. 3. Carafate suspension 1 g p.o. 4 times a day 4. Resume GI soft diet advance as tolerated 5. Outpatient follow up with me in 4-6 weeks to review results and discuss further management NIKKI GARCIA MD Nov 07, 2024 15:07
--- NOTE | 2024-11-07 15:32 | DVHPN2 ---
Subjective Patient is clinically stable. No pain. Being taken down to lab for EGD. Reviewed: Care Plan, H&P, Labs, Medications, Previous Orders, Radiology, Other (Consultation) Changes from previous H/P or p: No Changes Objective Vitals Vital Signs Date Time Temp Pulse Resp B/P (MAP) Pulse Ox O2 Delivery O2 Flow Rate FiO2 11/07/24 13:30 92 16 153/84 11/07/24 12:47 97.7 92 97.7 11/07/24 07:59 Room Air* 0 21 Intake/Output Intake and Output 11/07/24 07:00 Intake Total 900 ml Balance 900 ml Intake Oral 900 ml # Voids 12 General Appearance: Alert, Oriented X3, Cooperative HEENT: Atraumatic Lungs: Clear to auscultation, Normal air movement Cardiovascular: Regular rate, Normal S1, Normal S2 Abdomen: Normal bowel sounds, Soft, Other (Diffuse tenderness) Extremities: No edema Neuro: Normal speech, Cranial nerves 3-12 NL Psych/Mental Status: Mental status NL, Mood NL Medications Current Medications Medications Dose Ordered Sig/Carlton Route Start Time Stop Time Status Last Admin Dose Admin Sodium Chloride 1,000 ml @ 60 mls/hr [id number] IV 11/03/24 05:30 11/07/24 09:30 60 MLS/HR Ondansetron HCl 4 mg Q4HP PRN IV 11/03/24 05:30 Acetaminophen 650 mg Q6HP PRN PO 11/03/24 05:30 11/06/24 00:38 650 MG Morphine Sulfate 2 mg Q4HPRN PRN IV 11/03/24 05:30 11/07/24 12:54 2 MG Nitroglycerin 0.4 mg Q5MINP PRN SL 11/03/24 05:30 Morphine Sulfate 2 mg Q30M PRN IV 11/03/24 05:30 Docusate Sodium 100 mg DAILY PO 11/05/24 10:00 11/06/24 08:37 100 MG Folic Acid 1 mg DAILY PO 11/05/24 10:00 11/07/24 08:17 1 MG Lisinopril 10 mg DAILY PO 11/04/24 22:00 11/07/24 08:18 10 MG Hydralazine HCl 10 mg Q6HR PRN IV 11/05/24 00:45 11/05/24 00:53 10 MG Gabapentin 300 mg TID PO 11/05/24 01:00 11/07/24 05:47 300 MG Pantoprazole Sodium 40 mg BID@0600,1700 PO 11/07/24 17:00 UNV Sucralfate 1 gm BID@0600,2200 PO 11/07/24 22:00 UNV Laboratory Results Laboratory Tests 11/07/24 05:58 Chemistry Test 11/07/24 05:58 Calcium Level 9.1 mg/dL (8.7-10.4) Magnesium Level 1.7 mg/dL (1.6-2.6) Urinalysis Test 11/03/24 05:46 Urine Color Yellow (Yellow) Urine Clarity Clear (Clear) Urine pH 6.0 (5.0-9.0) Urine Specific [place] > 1.050 (1.001-1.035) Urine Protein 1+ (Negative) H Urine Ketones Negative (Negative) Urine Blood Negative /uL (Negative) Urine Nitrite Negative (Negative) Urine Bilirubin Negative (Negative) Urine Urobilinogen Normal mg/dL (Negative) Urine Leukocyte Esterase Negative /uL (Negative) Urine RBC 1 /hpf (0 - 4) Urine Microscopic WBC 1 /HPF (0-5) Urine Squamous Epithelial Cells Few /hpf (<5) Urine Bacteria None seen /hpf (None Seen) Urine Glucose Normal mg/dL (Normal) Microbiology Microbiology Date/Time Source Procedure Growth Status 11/03/24 01:47 Blood Blood Culture - Preliminary NO GROWTH AFTER 72 HOURS OF INCUBATION. Resulted Assessment/Plan Assessment/Plan Persistent abdominal pain with nausea and on-and-off diarrhea with multiple moderately dilated fluid and gas-filled segments of small and large bowel exhibiting air-fluid levels without an identifiable transition zone of caliber or obstructive etiology on imaging study Status post cholecystectomy with moderate reservoir affect and moderate common bile duct and mild pancreatic duct dilatation. Partially calcified 9 mm right lung base nodule; to follow up as outpatient Normocytic anemia; most likely inflammatory Lactic acidosis with no clear etiology; resolved FAROOQ; most likely vasomotor nephropathy Hypokalemia in the setting of decreased oral intake and on-and-off diarrhea Essential hypertension Tobacco use disorder Malnutrition Reviewed lab work, available cultures (negative blood cultures), and available imaging studies No symptoms/signs of active bleeding Continue pain management as indicated Encouraged to increase oral intake; nutrition consult placed Continue antihypertensive medication/s and adjust according to blood pressure monitoring Counseled the patient on tobacco use cessation for 16 minutes GI is following; EGD is done just not show some esophagitis and gastritis. Recommended Carafate and Protonix. Evaluated by surgery Replace electrolytes as indicated Continue IV fluids Avoid nephrotoxic Continue monitoring Resume diet post EGD. Continue Protonix Carafate. Stop the fluids. Out of bed ambulate. If she remains stable overnight consider discharge home tomorrow. Plan discussed with: Other My Orders Orders - AHMET LOVE MD Procedure Category Date Status Time Pt Request For Service PT 11/07/24 Transmitted 15:28 Date of Service: Nov 07, 2024 Billing Provider: AHMET LOVE MD Common Visit Codes: [id number] INP/OBS CARE(LOW) AHMET LOVE MD Nov 07, 2024 15:32
[2024-11-07] MEDS: PANTOPRAZOLE 40 MG TAB PO SCH (18:08)
[2024-11-07] MEDS: SUCRALFATE 1 GM/10 ML ORAL SUSP PO SCH (20:18)
[2024-11-08 01:00] VITALS: BP 139/82; PULSE 81; RESP 18; TEMP 99.1; O2SAT 99
[2024-11-08 05:00] VITALS: BP 121/84; PULSE 92; RESP 20; TEMP 99; O2SAT 95
[2024-11-08 05:53] LABS: Hematocrit 34.7 % (36.0-46.0); Hemoglobin 11.6 g/dL (12.2-16.2); Mean Corpuscular Hemoglobin 29.8 pg (28.0-32.0); Mean Corpuscular Volume 89.4 fL (80.0-100.0); Nucleated Red Blood Cells % 0.0 %
[2024-11-08 05:56] LABS: Chloride 106 mmol/L (98-107); Potassium 3.9 mmol/L (3.5-5.1); Sodium 140 mmol/L (136-145)
[2024-11-08 05:57] LABS: Anion Gap 10 (5-15); Calcium 9.0 mg/dL (8.7-10.4); Carbon Dioxide 24 mmol/L (20-31)
[2024-11-08 06:02] LABS: BUN/Creatinine Ratio 19.5 (10.0-20.0); Blood Urea Nitrogen 17 mg/dL (9-23)
[2024-11-08 06:03] LABS: Glucose 162 mg/dL (74-106)
[2024-11-08 09:00] VITALS: BP 156/106; PULSE 88; RESP 19; TEMP 98.2; O2SAT 97
[2024-11-08 13:00] VITALS: BP 133/77; PULSE 74; RESP 17; TEMP 98.6; O2SAT 97
--- NOTE | 2024-11-08 13:51 | DVHPN2 ---
Progress Note Date Seen: Nov 08, 2024 Resident Creating Document: BRYAN LEBLANC RESIDENT Medical Necessity Reason Pt with a Central, PICC or Fol: No Subjective Review of Systems Patient seen and examined at bedside Last bowel movement 11/07/2024 Denies any nausea or vomiting Denies abdominal pain Tolerating diet Objective vital signs Vital Sign Date Time Temp Pulse Resp B/P (MAP) Pulse Ox O2 Delivery O2 Flow Rate FiO2 11/08/24 09:00 98.2 88 19 156/106 (123) 97 98.2 11/07/24 20:00 Room Air* 0 21 Total Intake and Output 11/07/24 11/07/24 11/08/24 15:00 23:00 07:00 Intake Total 10 ml 500 ml 50 ml Balance 10 ml 500 ml 50 ml medications Current Medications Medications Dose Ordered Sig/Carlton Route Start Time Stop Time Status Last Admin Dose Admin Ondansetron HCl 4 mg Q4HP PRN IV 11/03/24 05:30 Acetaminophen 650 mg Q6HP PRN PO 11/03/24 05:30 11/06/24 00:38 650 MG Morphine Sulfate 2 mg Q4HPRN PRN IV 11/03/24 05:30 11/08/24 08:38 2 MG Nitroglycerin 0.4 mg Q5MINP PRN SL 11/03/24 05:30 Morphine Sulfate 2 mg Q30M PRN IV 11/03/24 05:30 Docusate Sodium 100 mg DAILY PO 11/05/24 10:00 11/06/24 08:37 100 MG Folic Acid 1 mg DAILY PO 11/05/24 10:00 11/08/24 08:37 1 MG Lisinopril 10 mg DAILY PO 11/04/24 22:00 11/08/24 08:37 10 MG Hydralazine HCl 10 mg Q6HR PRN IV 11/05/24 00:45 11/05/24 00:53 10 MG Gabapentin 300 mg TID PO 11/05/24 01:00 11/08/24 05:41 300 MG Pantoprazole Sodium 40 mg BID@0600,1700 PO 11/07/24 17:00 11/08/24 05:41 40 MG Sucralfate 1 gm BID@0600,2200 PO 11/07/24 22:00 11/08/24 05:41 1 GM Examination General Appearance: Alert, Oriented X3, Cooperative HEENT: Atraumatic Lungs: Clear to auscultation, Normal air movement Cardiovascular: Regular rate, Normal S1, Normal S2 Abdomen: Normal bowel sounds, Soft, Other (Diffuse tenderness) Extremities: No edema Neuro: Normal speech, Cranial nerves 3-12 NL Psych/Mental Status: Mental status NL, Mood NL laboratory and microbiology Laboratory Tests 11/08/24 05:24 Test 11/08/24 05:24 Range/Units Serum Glucose 162 H 74-106 mg/dL Microbiology Date/Time Source Procedure Growth Status 11/03/24 01:47 Blood Blood Culture - Final NO GROWTH AFTER 5 DAYS OF INCUBATION. Complete Labs and/or images reviewed: Labs reviewed by me, Image(s) reviewed by me Problem List/Assessment/Plan Problem List/Assessment/Plan Acute abdominal pain, now resolved likely secondary to ileus Erosive esophagitis, grade A [id number] gastritis Hiatal hernia Partially calcified 9 mm right lung base nodule Status post cholecystectomy with moderate reservoir affect and moderate common bile duct and mild pancreatic duct dilatation. Plan: P.o. Protonix 40 mg b.i.d. Carafate suspension 1 g q.i.d. Advance diet as tolerated Patient completed colonoscopy in 2019 with a gastro group, obtain records Outpatient follow up with GI for possible colonoscopy as well as other workup as indicated. Thank you so much for the opportunity to consult on your patient. GI team will follow the patient. In case of any questions or concerns please feel free to reach out. Plan discussed with Dr. Garcia Plan discussed with: Patient, Other (RN) My Orders My Orders Orders - BRYAN LEBLANC RESIDENT Procedure Category Date Status Time Carcinoembryonic LAB 11/08/24 Verified Antigen 13:51 Carbohydrate Antigen LAB 11/08/24 Verified 19-9 Cancer Antigen (Ca) LAB 11/08/24 Verified 125 13:51 Dietary Evaluation Review Comments: Nutrition Recommendation 1) Advance to cardiac soft diet as medically feasible 2) Consider Ensure enlive 240ml TID 3) Monitor NPO status/PO intake, lab values, weight trend, and I/O Expected Outcomes/Goals: To meet >75% estimated needs GI symptoms to improve Fu 3-5 days BRYAN LEBLANC RESIDENT Nov 08, 2024 13:51
[2024-11-08] MEDS ORDERED: PANT40T PO (16:31)
[2024-11-08] MEDS ORDERED: SUCR1SUS5 PO (16:31)
--- NOTE | 2024-11-08 16:33 | DVHDS2 ---
Discharge Summary Date of Admission Nov 03, 2024 at 05:16 Date of Discharge: Nov 08, 2024 Labs/Diagnostic Data: Laboratory Results Test 11/08/24 14:40 11/08/24 05:24 11/07/24 05:58 11/06/24 13:57 White Blood Count 7.1 10^3/uL (4.4-10.8) Red Blood Count 3.89 10^6/uL (4.0-5.20) Hemoglobin 11.6 g/dL (12.2-16.2) Hematocrit 34.7 % (36.0-46.0) Mean Corpuscular Volume 89.4 fL (80.0-100.0) Mean Corpuscular Hemoglobin 29.8 pg (28.0-32.0) Mean Corpuscular Hemoglobin Concent 33.4 g/dL (32.0-36.0) Red Cell Distribution Width 14.2 % (11.8-14.3) Platelet Count 291 10^3/uL (140-450) Mean Platelet Volume 8.0 fL (6.9-10.8) Neutrophils (%) (Auto) 80.3 % (37.0-80.0) Lymphocytes (%) (Auto) 13.6 % (10.0-50.0) Monocytes (%) (Auto) 5.7 % (0.0-12.0) Eosinophils (%) (Auto) 0.0 % (0.0-7.0) Basophils (%) (Auto) 0.4 % (0.0-2.0) Neutrophils # (Auto) 5.7 10 ^3/uL (1.6-8.6) Lymphocytes # (Auto) 1.0 10 ^3/uL (0.4-5.4) Monocytes # (Auto) 0.4 10 ^3/uL (0-1.3) Eosinophils # (Auto) 0 10 ^3/uL (0-0.8) Basophils # (Auto) 0 10 ^3/uL (0-0.2) Nucleated Red Blood Cells 0.0 % Sodium Level 140 mmol/L (136-145) Potassium Level 3.9 mmol/L (3.5-5.1) Chloride Level 106 mmol/L (98-107) Carbon Dioxide Level 24 mmol/L (20-31) Anion Gap 10 (5-15) Blood Urea Nitrogen 17 mg/dL (9-23) Creatinine 0.87 mg/dL (0.550-1.02) Glomerular Filtration Rate Calc 75 mL/min (>90) BUN/Creatinine Ratio 19.5 (10.0-20.0) Serum Glucose 162 mg/dL (74-106) Calcium Level 9.0 mg/dL (8.7-10.4) Carcinoembryonic Antigen 3.78 ng/mL (<=5.0) Magnesium Level 1.7 mg/dL (1.6-2.6) Prothrombin Time 10.7 sec (9.3-11.8) Prothrombin Time INR 1.01 (0.9-1.15) Test 11/04/24 05:34 11/03/24 05:46 11/03/24 01:47 11/03/24 00:22 Total Bilirubin 0.6 mg/dL (0.2-1.0) Aspartate Amino Transferase (AST) 19 U/L (13-40) Alanine Aminotransferase (ALT) 17 U/L (7-40) Alkaline Phosphatase 69 U/L (46-116) Total Protein 6.3 g/dL (5.7-8.2) Albumin 3.3 g/dL (3.2-4.8) Urine Color Yellow (Yellow) Urine Clarity Clear (Clear) Urine pH 6.0 (5.0-9.0) Urine Specific [place] > 1.050 (1.001-1.035) Urine Protein 1+ (Negative) Urine Ketones Negative (Negative) Urine Blood Negative /uL (Negative) Urine Nitrite Negative (Negative) Urine Bilirubin Negative (Negative) Urine Urobilinogen Normal mg/dL (Negative) Urine Leukocyte Esterase Negative /uL (Negative) Urine RBC 1 /hpf (0 - 4) Urine Microscopic WBC 1 /HPF (0-5) Urine Squamous Epithelial Cells Few /hpf (<5) Urine Bacteria None seen /hpf (None Seen) Urine Glucose Normal mg/dL (Normal) Lactic Acid Level 1.9 mmol/L (0.4-2.0) Lipase 49 U/L (12-53) Other Laboratory Tests 11/08/24 05:24 Final Diagnosis/Problems List Status post cholecystectomy with moderate reservoir affect and moderate common bile duct and mild pancreatic duct dilatation. Partially calcified 9 mm right lung base nodule; to follow up as outpatient Normocytic anemia; most likely inflammatory Lactic acidosis with no clear etiology; resolved 3 cm sliding-type hiatal hernia with slightly irregular squamocolumnar junction minimal grade a erosive esophagitis [id number] gastritis with some hyperemia erythema and superficial erosions and flecks of old blood FAROOQ; most likely vasomotor nephropathy Hypokalemia in the setting of decreased oral intake and on-and-off diarrhea Essential hypertension Tobacco use disorder Malnutrition Discharge Disposition: Home Discharge Instruct/Medications Diet: Consistent carbohydrate, Cardiac 2g Na,low cholest Activity: No Restrictions, As Tolerated Follow Up/Referral: Primary care physician next week and Dr. Garcia GI physician in 2-3 weeks Medications: As prescribed and home medications per discharge med rec list Scheduled Acetaminophen (Acetaminophen), 500 MG PO Q4HPRN Bupropion Hcl (Budeprion Sr), DAILY, (Reported) Calcium Carbonate-Vitamin D (Calcium 600-D), 1 TAB PO BID, (Reported) Clindamycin Hcl (Clindamycin Hcl), 1 CAP PO QID Ferrous Sulfate (Fe Tabs), DAILY, (Reported) Folic Acid (Folic Acid), 1 TAB PO DAILY, (Reported) Gabapentin (Gabapentin), TID, (Reported) Hydroxychloroquine Sulfate (Hydroxychloroquine Sulfat), DAILY, (Reported) Pantoprazole Sodium Sesquihydr (Pantoprazole Sodium), 40 MG PO BID Sucralfate (Carafate), 10 ML PO QID Trazodone Hcl (Trazodone Hcl), DAILY, (Reported) Miscellaneous Medications Albuterol Sulfate (Albuterol Sulfate), (Reported) Budesonide-Formoterol Fumarate (Symbicort), (Reported) Docusate Sodium (Colace), 100 MG PO, (Reported) Hydrocodone-Acetaminophen (Hydrocodone Bitartrate/Ap), (Reported) Hydroxyzine Hcl (Vistaril), (Reported) Lisinopril (Lisinopril), (Reported) Meloxicam (Meloxicam), 15 MG PO, (Reported) Methocarbamol (Methocarbamol), (Reported) Methotrexate (Methotrexate), 2.5 MG PO, (Reported) Omeprazole (Gnp Omeprazole), 20 MG PO, (Reported) Prednisone (Sterapred Ds), (Reported) Sumatriptan Succinate (Imitrex), (Reported) [Triamcinoldine], (Reported) Discharge Statement: "Patient was advised to return to the ER or call 911 if any headaches, dizziness, shortness of breath, chest pain, abdominal pain, bleeding, fevers, or worsening of medical condition. Patient was counseled about treatment plan, medications, possible side effects, patientverbalized understanding. All questions were answered to the best of my ability. This discharge took greater then 30 minutes in planning, reviewing documentation, counseling the patient, and discussing with other team members." ASSESSMENT ASSESSMENT Assessment Status post cholecystectomy with moderate reservoir affect and moderate common bile duct and mild pancreatic duct dilatation. Partially calcified 9 mm right lung base nodule; to follow up as outpatient Normocytic anemia; most likely inflammatory Lactic acidosis with no clear etiology; resolved 3 cm sliding-type hiatal hernia with slightly irregular squamocolumnar junction minimal grade a erosive esophagitis [id number] gastritis with some hyperemia erythema and superficial erosions and flecks of old blood FAROOQ; most likely vasomotor nephropathy Hypokalemia in the setting of decreased oral intake and on-and-off diarrhea Essential hypertension Tobacco use disorder Malnutrition AHMET LOVE MD Nov 08, 2024 16:33
[2024-11-08 17:00] VITALS: BP 96/57; PULSE 82; RESP 17; TEMP 98.2; O2SAT 98
== END 2024-11-08 18:34 | disposition home or self-care (01) | DRG 391 ==
LOC: ER 23:25 → EDBD 23:25 → OVERFLOW 11-03 05:16 → EAST 11-03 13:59
PROVIDERS: ADMIT Hospitalist; ATTEND Hospitalist
PROC: 0DB68ZX Excision of Stomach, Via Natural or Artificial Opening Endoscopic, Diagnostic (ICD-10-PCS; 2024-11-07)
PROC: 0DB48ZX Excision of Esophagogastric Junction, Via Natural or Artificial Opening Endoscopic, Diagnostic (ICD-10-PCS; 2024-11-07)
PROC: 0DB98ZX Excision of Duodenum, Via Natural or Artificial Opening Endoscopic, Diagnostic (ICD-10-PCS; principal; 2024-11-07 14:47)
DX: K29.70 Gastritis, unspecified, without bleeding (principal); N17.0 Acute kidney failure with tubular necrosis; E46 Unspecified protein-calorie malnutrition; K56.7 Ileus, unspecified; E87.20 Acidosis, unspecified; K22.10 Ulcer of esophagus without bleeding; Z68.1 Body mass index [BMI] 19.9 or less, adult; K44.9 Diaphragmatic hernia without obstruction or gangrene; K52.9 Noninfective gastroenteritis and colitis, unspecified; I10 Essential (primary) hypertension; E87.6 Hypokalemia; E78.5 Hyperlipidemia, unspecified; F17.200 Nicotine dependence, unspecified, uncomplicated; M06.9 Rheumatoid arthritis, unspecified; J44.9 Chronic obstructive pulmonary disease, unspecified; K21.9 Gastro-esophageal reflux disease without esophagitis; K86.89 Other specified diseases of pancreas; R91.1 Solitary pulmonary nodule; D64.9 Anemia, unspecified; Z80.8 Family history of malignant neoplasm of other organs or systems; Z88.0 Allergy status to penicillin; Z88.5 Allergy status to narcotic agent; Z88.6 Allergy status to analgesic agent; Z90.710 Acquired absence of both cervix and uterus
CPT/HCPCS: 36415; 43239; 71045; 74177; 80048; 80053; 81001; 82378; 83605; 83690; 83735; 85025; 85610; 86301; 86304; 86850; 86900; 86901; 87040; 93005; 96361; 96374; 96375; 97163; G0378; J1100; J2003; J2250; J2405; J2704